=== PATIENT | male | born 1950 | race Caucasian/White ===

== ENCOUNTER 2021-05-28 08:05 | Day surgery (SDC) | payer MEDICARE, SELFPAY ==
[2021-05-23 14:00] VITALS: BMI 36.8
--- NOTE | 2021-05-26 14:27 | P.CONAN_ITS ---
Documented by User: Cathryn Lomas NP 05/26/21 14:27 HPI - Anesthesia Eval Consult details Narrative: 70yo M for Colonoscopy Eliquis for afib [facility] Past Medical History Medical History Atrial fibrillation Diabetes Elevated cholesterol HTN (hypertension) Surgical History Surgical History H/O colonoscopy Social History Social History Patient Tobacco Use Status: Former Tobacco user Quit Date: 2013 Tobacco use type: Cigarette Advance Directives: No Advance Directives Information Provided: Yes Advance Directives on File: No Meds Allergies Allergy/AdvReac Type Severity Reaction Status Date / Time No Known Allergies Allergy Verified 05/28/21 08:15 [No Known Allergies*] Home Medications Medication Instructions Recorded Confirmed Last Taken Type apixaban 5 mg tablet (Eliquis) 1 tab PO BID 05/23/21 05/23/21 Unknown History atorvastatin 40 mg tablet 1 tab PO DAILY 05/23/21 05/23/21 Unknown History lisinopril 20 mg tablet 1 tab PO DAILY 05/23/21 05/23/21 Unknown History metformin 500 mg tablet 2 tab PO BID 05/23/21 05/23/21 Unknown History metoprolol tartrate 100 mg tablet 1 tab PO DAILY 05/23/21 05/28/21 05/28/21 06:45 History Exam Exam Date and Time: May 26, 2021 142 Height,Weight and Vital Signs: Height 5 ft 7 in Weight 106.594 kg Assessment and Plan Assessment Anesthesia Assessment: Chart Reviewed Documented by User: José Antonio Roberson MD 05/28/21 14:44 HPI - Anesthesia Eval Consult details Narrative: 70yo M for Colonoscopy Eliquis for afib, held 4 days ago for procedure , 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 [facility] Past Medical History Medical History Atrial fibrillation Diabetes Elevated cholesterol HTN (hypertension) Family History Family history of problems with anesthesia: No Surgical History Surgical History H/O colonoscopy History of Problems with Anesthesia: No Social History Social History Patient Tobacco Use Status: Former Tobacco user Quit Date: 2013 Tobacco use type: Cigarette Advance Directives: No Advance Directives Information Provided: Yes Advance Directives on File: No Meds Allergies Allergy/AdvReac Type Severity Reaction Status Date / Time No Known Allergies Allergy Verified 05/28/21 08:15 [No Known Allergies*] Home Medications Medication Instructions Recorded Confirmed Last Taken Type apixaban 5 mg tablet (Eliquis) 1 tab PO BID 05/23/21 05/23/21 Unknown History atorvastatin 40 mg tablet 1 tab PO DAILY 05/23/21 05/23/21 Unknown History lisinopril 20 mg tablet 1 tab PO DAILY 05/23/21 05/23/21 Unknown History metformin 500 mg tablet 2 tab PO BID 05/23/21 05/23/21 Unknown History metoprolol tartrate 100 mg tablet 1 tab PO DAILY 05/23/21 05/28/21 05/28/21 06:45 History Exam Airway Mallampati Class: IV TM Dist: >3cm Neck ROM: Full Partial: Upper and Lower Loose/Missing/Broken Teeth: Yes Heart: irregular Lungs: bl breath sounds Assessment and Plan Assessment Anesthesia Assessment: Anesthesia Plan Discussed Final Anesthetic Review Family History of Problems with Anesthesia: No History of Problems with Anesthesia: No NPO: Yes ASA Class: III Final Preanesthetic Review: Meds/Allgs Chart Reviewed, Consent Obtained/Reviewed and Anes Risks/Benef Reviewed Patient Risk: High Procedure Risk: Intermediate Anesthetic Plan Anesthetic Plan: MAC: Disposition: Standard PACU
[2021-05-28 08:50] VITALS: BP 172/89; PULSE 75; RESP 18; TEMP 35.6; O2SAT 98
[2021-05-28 08:50] LABS: Glucose, Whole Blood 125 mg/dL (60-115)
[2021-05-28] MEDS: Lactated Ringers 1,000 ML 100 ML IVCONT (08:55)
--- NOTE | 2021-05-28 10:25 | PM.OP ---
Brief Operative Note Date of Service: 05/28/21 Pre-op diagnosis: Screening Post-op diagnosis: other (Diverticulosis) Procedure: Colonoscopy to the cecum Surgeon: Cody Perez Anesthesia: MAC Was an Machine Package Sealer used for this Procedure?: No Estimated blood loss (mL): 0 Pathology: none sent Condition: stable Disposition: PACU
[2021-05-28 10:41] VITALS: BP 129/85; PULSE 83; RESP 20; TEMP 35.9; O2SAT 97
[2021-05-28 10:56] VITALS: BP 149/98; PULSE 71; RESP 16; TEMP 36.4; O2SAT 96
--- NOTE | 2021-05-28 11:01 | OP_ITS ---
SURGEON: Cody Perez MD INDICATIONS: The patient presents for evaluation of personal history of tubular adenoma of the colon, family history of colon cancer, and colorectal cancer screening. Full consent was obtained from him for this, including risks of bleeding and perforation. PREOPERATIVE DIAGNOSIS: POSTOPERATIVE DIAGNOSIS: PROCEDURE PERFORMED: Colonoscopy to the cecum. ESTIMATED BLOOD LOSS: COMPLICATIONS: ANESTHESIA: Monitored anesthesia care. ASSISTANTS: SPECIMENS: PREOPERATIVE DIAGNOSES: Colorectal cancer screening, family history colon cancer, personal history of tubular adenoma of the colon. POSTOPERATIVE DIAGNOSES: Colorectal cancer screening, family history colon cancer, personal history of tubular adenoma of the colon, diverticulosis and internal hemorrhoids. DESCRIPTION OF PROCEDURE: The patient was placed in the left lateral decubitus position. The digital rectal exam revealed no abnormalities. The Olympus video pediatric colonoscope was entered into the rectum and advanced easily to the cecum. Once in the cecum I did identify normal-appearing cecal pouch with appendiceal orifice and a normal-appearing ileocecal valve. There was transillumination of light deep in the right lower quadrant. The entire cecum appeared normal. The scope was then slowly withdrawn assessing all mucosal surfaces carefully. Preparation was excellent. I did not visualize any sign of polyps, colitis, or angiodysplasia. There was scattered diverticula in the ascending colon, there was a moderate amount of diverticulosis in the descending and sigmoid colon. In the rectum, scope was retroflexed visualizing internal hemorrhoids, but no other pathology. The rectal mucosa appeared normal. The scope was straightened and withdrawn from the patient. He tolerated the procedure well and was returned to the recovery area in stable condition. IMPRESSION: 1. Diverticulosis. 2. Internal hemorrhoids. PLAN: I would recommend a repeat colonoscopy in 5 years for further screening given his previous history of tubular adenomas and family history of colon cancer. He was advised to resume his Eliquis today. He will otherwise see me on a p.r.n. basis. MD KUSUM Negron/TIMOTHY / [id number]
== END 2021-05-28 11:40 | disposition home or self-care (01) ==
PROVIDERS: PCP General Practice; Visit Provider Internal Medicine
PROC: 0DJD8ZZ Inspection of Lower Intestinal Tract, Via Natural or Artificial Opening Endoscopic (ICD-10-PCS; CPT 45378; principal; 2021-05-28 09:30)
DX: Z12.11 Encounter for screening for malignant neoplasm of colon (principal); Z86.010 Personal history of colon polyps; Z80.0 Family history of malignant neoplasm of digestive organs; K57.30 Diverticulosis of large intestine without perforation or abscess without bleeding; K64.8 Other hemorrhoids; E78.5 Hyperlipidemia, unspecified; I48.91 Unspecified atrial fibrillation; Z79.01 Long term (current) use of anticoagulants; I10 Essential (primary) hypertension; E11.9 Type 2 diabetes mellitus without complications; Z79.84 Long term (current) use of oral hypoglycemic drugs; Z79.899 Other long term (current) drug therapy; Z87.891 Personal history of nicotine dependence
CPT/HCPCS: G0105; 82947

== ENCOUNTER 2021-07-24 09:32 | Outpatient (REF) | payer MEDICARE, SELFPAY ==
--- NOTE | ~2021-07-24 | US_ITS ---
EXAMINATION: US RETROPERITONEAL LIMITED (AORTA) CLINICAL INFORMATION: History of smoking. Abdominal aortic screening. COMPARISON: None TECHNIQUE: Azar-scale, color Doppler and spectral Doppler evaluation of the abdominal aorta. Technically difficult study secondary to bowel gas and body habitus. FINDINGS: Study is somewhat limited due to large body habitus and bowel gas. The measurements of the aorta in maximum AP and transverse dimensions respectively are as follows: Proximal: 2.8 x 3.0 cm. Mid: 1.7 x 1.7 cm. Distal: 1.6 x 1.9 cm. PSV: 85 cm/s. There is calcified and noncalcified mild aortoiliac plaque present. The measurements of the common iliac arteries in maximum AP and TRV dimensions are as follows: Right: AP: 1.1 cm. TRV: 1.2 cm. Left: AP: 1.1 cm. TRV: 1.1 cm. US/US aorta IMPRESSION: No abdominal aortic aneurysm.
== END 2021-07-24 09:33 | disposition home or self-care (01) ==
LOC: HO.US 09:32
PROVIDERS: Visit Provider General Practice
DX: Z87.891 Personal history of nicotine dependence (principal)
CPT/HCPCS: 76775

== ENCOUNTER 2024-08-29 10:01 | Outpatient (AMB) | payer OTHER, SELFPAY ==
--- NOTE | 2024-08-29 10:12 | MHC.PC.OV ---
Vital Signs 08/29/24 10:13 Height 5 ft 7 in Weight 225 lb 12.8 oz BMI 35.4 BP 160/94 H Blood Pressure Location Rt brachial Position Sitting Respiration 16 Pulse 84 Pulse Source Pulse Oximeter Temp 97.6 F Temp Source Oral Pulse Oximetry (%) 96 Oxygen Delivery Method Room Air Intake Visit Reasons: establish care Intake Note: Patient is a new patient here to establish care. Transferring care from [facility] in [place], [place]. Medical records have not been requested and have not been received. 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 Required: No Accompanied by: Self / Same As Patient Allergies No Known Allergies [No Known Allergies*] Allergy (Verified 08/29/24 10:37) Medication List - Last Reconciled 08/29/24 by FRANNY Bates apixaban (Eliquis) 1 tab PO BID atorvastatin 40 mg PO DAILY lisinopril 30 mg PO DAILY metformin 2 tabs PO BID metoprolol tartrate 50 mg PO BID Tobacco use date assessed: 08/29/24 Fall risk assessment: No Falls in past year Last assessed Fall Risk: 08/29/24 Dental Screening Dental Screen Date: 08/29/24 Did you have a dental visit in the last 12 months?: Yes Did you have a dental problem in the last 6 months where you did not have access to dental care?: No Was dental information given to patient?: Patient has dentist HPI establish care HPI Details Previous PCP:[facility] in [place], [place] Last visit: February,march,, his doctor retired Last PE: August or September, Specialist: Needs EKG, 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 Rico GUTHRIEN:n/a Past medical history: DM, HLD, AFIB, macular degeneration (recurrent eye injections) Medications: Family HX: Problem: Blood pressure elevated in office at 160/94 reports home blood pressure of 130/80s reports having coffee before appointment recheck bp 160/98-reports that he recently had coffee and he does not usually drinks coffee prior to his doctors appointments, but he forgot and had coffee this morning reports doing the treadmill at the gym 3 times a weeks he denies any pain ON exam: bilateral ear impaction, recommended debrox ear drops will evaluate upon return [facility] Medical History (Updated 08/29/24 @ 11:20 by FRANNY Bates) Diabetes Elevated cholesterol Atrial fibrillation HTN (hypertension) Surgical History H/O colonoscopy Family History Father Heart disease Mother Colon cancer Social History Household Members: None Housing: Condominium Alcohol intake: current Alcohol intake frequency: 0-2 drinks per day Patient Tobacco Use Status: Former Tobacco user Tobacco use type: Cigarette e-Cigarette/Vaping Use: Never Used service: No Current occupational status: retired Cognitive needs: No Hearing needs: No Vision needs: Yes (Glasses) Questionnaire PHQ-9 Over the last 2 weeks, how often have you been bothered by any of the following problems? 1. Little interest or pleasure in doing things: not at all 2. Feeling down, depressed, or hopeless: not at all 3. Trouble falling or staying asleep, or sleeping too much: not at all 4. Feeling tired or having little energy: not at all 5. Poor appetite or overeating: not at all 6. Feeling bad about yourself - or that you are a failure or have let yourself or your family down: not at all 7. Trouble concentrating on things, such as reading the newspaper or watching television: not at all 8. Moving or speaking so slowly that other people could have noticed. Or the opposite - being so fidgety or restless that you have been moving around a lot more than usual: not at all 9. Thoughts that you would be better off or of hurting yourself in some way: not at all Total score: 0 Depression Screening Interpretation: Negative Depression Screening Done: Yes 67917 - PHQ-9 Billing: Yes Source: Developed by Drs. Cody Comer, Tram Starr, Keyon Angeles and colleagues, with an educational zafar from [employer]. Thrive Questionnaire Date Thrive assessed: 08/29/24 I am a: Patient What is your living situation today?: I have a steady place to live Within the past 12 months, did the food you bought not last and you didn't have the money to get more?: Never true Within the past 12 months, did you worry whether your food would run out before you got money to buy more?: Never true Do you have trouble paying for medicines?: No Do you have trouble getting transportation to medical appointments?: No Do you have trouble paying your heating and electricity bill?: No Do you have trouble taking care of your child, family member or friend?: No Do you have trouble with day-to-day activities such as bathing, preparing meals, shopping, managing finances, etc.?: No Are you currently unemployed and looking for a job?: No Are you interested in more education?: No Please select the resources that you would like help with: None Currently or been in a relationship where the following occur: No concerns reported THRIVE Score: 0 AUDIT C Alcohol Use Questionnaire (AUDIT-C) 1. How often do you have a drink containing alcohol?: Never 3. How often do you have six or more drinks on one occasion?: Never Total Score: 0 Score Reviewed/Action Taken: No NALLELY-7 AMB Questionnaire NALLELY-7 Date NALLELY - 7 assessed: 08/29/24 Feeling nervous, anxious, or on edge: 0 = Not at all Not being able to stop or control worryin = Not at all Worrying too much about different things: 0 = Not at all Trouble relaxin = Not at all Being so restless that it is hard to sit still: 0 = Not at all Becoming easily annoyed or irritable: 0 = Not at all Feeling afraid as if something awful might happen: 0 = Not at all Total NALLELY-7 score (0-4 normal; 5-9 mild; 10-14 moderate; 15-21 severe): 0 Source: Developed by Drs. Cody Comer, Tram Starr, Keyon Angeles and colleagues, with an educational zafar from [employer]. NALLELY-7 Assessment Billing NALLELY-7 Assessment Tool: NALLELY-7 Assessment 94951 Review of Systems Const Denies headache(s) Eyes Denies loss of vision ENT Denies vertigo, Denies dizziness, Denies headache(s) and Denies sore throat Card Denies chest pain, Denies leg edema and Denies lightheadedness Resp Denies cough, Denies hemoptysis and Denies wheezing GI Denies abdominal pain, Denies melena, Denies constipation, Denies diarrhea and Denies vomiting Denies dysuria, Denies urinary frequency and Denies urinary urgency Musc Denies arthralgias, Denies joint swelling, Denies numbness and Denies tingling Neuro Denies Abnormal speech present, Denies behavioral changes, Denies vertigo, Denies dizziness, Denies headache(s), Denies loss of vision, Denies memory loss, Denies numbness and Denies tingling Psych Denies anxiety, Denies behavioral changes, Denies depression, Denies memory loss and Denies panic attacks Fortino/Lymph Denies easy bleeding and Denies easy bruising Aller/Immun Denies wheezing Physical exam (Primary Care) Vital Signs: Last Vital Signs Temp 97.6 F 08/29/24 10:13 Pulse 84 08/29/24 10:13 Resp 16 08/29/24 10:13 BP 160/94 H 08/29/24 10:13 Pulse Ox 96 08/29/24 10:13 Oxygen Delivery Method Room Air 08/29/24 10:13 BMI result Body Mass Index 35.4 Tobacco/Smoking Status: Tobacco use Status Tobacco use date assessed 08/29/24 08/29/24 10:30 Patient Tobacco Use Status Former Tobacco user 08/29/24 10:28 Tobacco use type Cigarette 08/29/24 10:28 e-Cigarette/Vaping Use Never Used 08/29/24 10:30 PHQ-9: PHQ-9 Score PHQ-9: Total score 0 08/29/24 10:30 Depression Screening Interpretation: Negative Thrive Assessment: Date of Thrive Assessment Date Thrive assessed 08/29/24 08/29/24 10:30 Currently or been in a relationship where the following occur: No concerns reported Const General: healthy appearing, no acute distress, alert and awake Nutritional Appearance: well nourished Orientation/consciousness: oriented to person, oriented to place and oriented to time HENMT Ears: Abnormal EAC present cerumen impaction bilateral General nose exam: Normal nasal mucous membranes and turbinates present Eyes Conjunctivae: conjunctivae normal Sclerae: sclerae normal Pupils: Equal, round and reactive pupils present Neck Neck: Yes no lymphadenopathy and Yes no JVD Thyroid: Thyroid normal Carotids: no bruits Resp Effort & Inspection: normal respiratory effort and not tachypneic Auscultation: no crackles, no rales, no rhonchi and no wheezes Cardio Rate: regular rate Rhythm: abnormal rhythm irregularly irregular Heart sounds: no murmurs and normal S1 and S2 GI Palpation (GI): Soft to palpation, nontender, no hepatomegaly and no splenomegaly Auscultation: normal bowel sounds Skin General skin exam: no rashes or lesions noted and dry skin Neuro General: oriented to person, oriented to place and oriented to time Cranial nerves: Yes Equal, round and reactive pupils present Speech: No Abnormal speech present Gait exam (Neuro): Normal gait present Motor exam (neuro): no tremor noted Extrem Right upper extremity: full ROM Left upper extremity: full ROM Right lower extremity: full ROM; no edema Left lower extremity: full ROM; no edema Psych Mental Status: mental status grossly normal Speech and movement: Normal speech and movement present Affect: normal affect Attitude: cooperative Thought process: Normal thought process present Coding Level of Care Code New Pt Level 4 (63832) Diagnoses Longstanding persistent atrial fibrillation I48.11 Atrial fibrillation type: longstanding persistent Hyperlipidemia, unspecified hyperlipidemia type E78.5 Hyperlipidemia type: unspecified Hypertension, unspecified type I10 Hypertension type: unspecified Bilateral impacted cerumen H61.23 Laterality: bilateral Additional Codes NALLELY-7 Assessment Billing - NALLELY-7 Assessment Tool: NALLELY-7 Assessment 67840 ([id number]) PHQ-9 - 47644 - PHQ-9 Billing: Yes ([id number]) Time Spent (min) 37 Assessment & Plan Assessment & Plan (1) Atrial fibrillation: Code(s): I48.91 - Unspecified atrial fibrillation Category: Medical Qualifiers: Atrial fibrillation type: longstanding persistent Qualified Code(s): I48.11 - Longstanding persistent atrial fibrillation Plan: Longstanding AFib, reports being shocked years ago and converted for a short period, then went back into AFib shortly after Will order ekg to further evaluate He is currently on apixaban 5 mg b.i.d. and metoprolol tartrate 50 mg b.i.d. Continue atorvastatin 40 mg daily We will referral the patient to Cardiology. 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 Reports that this is due to coffee intake prior to visit and that his blood pressure usually runs in the 130s/80s Reinforced low-salt diet Continue lisinopril 30 mg daily, metoprolol tartrate 50 mg bid (4) Impacted ear wax: Code(s): H61.20 - Impacted cerumen, unspecified ear Category: Medical Qualifiers: Laterality: bilateral Qualified Code(s): H61.23 - Impacted cerumen, bilateral Plan: Bilateral ear impaction on exam encouraged using debrox ear drops to soften the cerumen will reevaluate on his next visit Orders: Orders Comprehensive Friant. Panel Fast Today E78.5 - Hyperlipidemia, unspecified, Z00.00 - Encounter for general adult medical examination without abnormal findings Lipid Panel Today E78.5 - Hyperlipidemia, unspecified, Z00.00 - Encounter for general adult medical examination without abnormal findings PSA,Total (Free>4and<10) Today E78.5 - Hyperlipidemia, unspecified, Z00.00 - Encounter for general adult medical examination without abnormal findings UA CC w/rflx Micro + Cult Today E78.5 - Hyperlipidemia, unspecified, Z00.00 - Encounter for general adult medical examination without abnormal findings TSH reflex Free T4 Today E78.5 - Hyperlipidemia, unspecified, Z00.00 - Encounter for general adult medical examination without abnormal findings Complete Blood Count Auto Diff Today E78.5 - Hyperlipidemia, unspecified, Z00.00 - Encounter for general adult medical examination without abnormal findings Vitamin D 25-OH Total Today E78.5 - Hyperlipidemia, unspecified, Z00.00 - Encounter for general adult medical examination without abnormal findings Hemoglobin A1c Today E78.5 - Hyperlipidemia, unspecified, Z00.00 - Encounter for general adult medical examination without abnormal findings ECG 12 lead EKG Today I10 - Essential (primary) hypertension, I48.91 - Unspecified atrial fibrillation Medications: New atorvastatin 40 mg PO DAILY 60 tabs 3RF Changed From apixaban (Eliquis) 1 tab PO BID To apixaban (Eliquis) 5 mg PO BID 90 days 180 tabs 3RF
[2024-08-29 10:13] VITALS: BP 160/94; PULSE 84; RESP 16; TEMP 36.4; O2SAT 96; BMI 35.4
== END 2024-08-29 11:06 | disposition home or self-care (01) ==
LOC: HO.HMCH 10:03
PROVIDERS: PCP General Practice
DX: I48.11 Longstanding persistent atrial fibrillation (principal); E78.5 Hyperlipidemia, unspecified; I10 Essential (primary) hypertension; H61.23 Impacted cerumen, bilateral

== ENCOUNTER → 2024-08-29 10:01 | Outpatient (BNVA) | payer OTHER, SELFPAY | PROVIDERS: PCP General Practice | DX: I48.11 Longstanding persistent atrial fibrillation (principal); E78.5 Hyperlipidemia, unspecified; I10 Essential (primary) hypertension; H61.23 Impacted cerumen, bilateral | CPT/HCPCS: 96127 ==

== ENCOUNTER 2024-09-05 08:15 | Outpatient (REF) | payer OTHER, SELFPAY ==
--- OUTSIDE RECORDS SUMMARY | 2024-09-05 08:22 | XMS_ITS | Patient Health Record ---
Author Organization [facility] Address [address] [place] [address] Care Team Providers Care Light Armored Vehicle Officer Name Role Phone Casey Reeves Primary Care Provider Cody Meeks Unavailable [phone] Allergies No Known Allergies Reason For Referral No Information Medications Medication SIG (Take, Route, Frequency, Duration) Notes Start Date End Date Status Lisinopril 20 MG 1 tablet Orally Once a day Active Atorvastatin Calcium 40 MG 1 tablet Oral ly Once a day Active Eliquis 5 MG 1 Orally bid Acti ve metFORMIN HCl 1000 MG 1 tablet with a me al Orally Twice a day Active Metoprolol Succinate ER 100 MG 1/2 tablet Orally twice a day Active Immunizations Vaccine Route Administration Date Status Comme nts Influenza Unknown 01/28/2021 Administered Social History Alcohol Screen Question Answer Notes Did you have a drink contain ing alcohol in the past year? Yes How often did you have a dri nk containing alcohol in the past year? 4 or more times a week (4 points) How many drinks did you have on a typical day when you were drinking in the past year? 1 or 2 drinks (0 point) How often did you have 6 or more drinks on one occasion in the past year? Never (0 point) Points 4 Interpretation Positive Section Notes: Nonsmoker since 2013; no sig alcohol Nonsmoker since 2013; no sig alcohol Problems Problem Type SNOMED Code ICD Code Onset Dates Problem Status W/U Status Risk Notes Problem 900244588 Encounter for screening for malignant neoplasm of colon (Z12.11) Active confirmed Problem 789748980 History of adenomatous polyp of colon (Z86.010) Active confirmed Problem Screening for malignant neoplasm of rectum (712189953) Encounter for screening for malignant neoplasm of rectum (Z12.12) Active confirmed Problem 07226937 Preprocedural examination (Z01.818) Active confirmed Problem History of polyp of colon (situation) (678149617) History of colon polyps (Z86.010) Active confirmed Problem Family History of Cancer of Colon (Situation) (076976597) Family history of colon cancer (Z80.0) Active confirmed Problem 398148818 Long-term (current) use of anticoagulants (Z79.01) Active confirmed Problem Diverticulosis of colon (136217857) Diverticulosis of colon (K57.30) Active confirmed Problem 282514639 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) Active confirmed Plan Of Treatment Future Test Test Name Order Date COLONOSCOPY 11/06/2015 COLONOSCOPY 04/17/2021 Insurance Providers Payer Name Payer Address Payer Phone Subscriber Number Group Number Insured Name Patient Relationship to Insured Coverage Start Date Coverage End Date [employer] PREFERRED [address] [place] [address] [phone] [id number] ARMANI GAFFNEY Self - patient is the insured Medical (General) History Medical History History ICD Code HTN Denies [place],CVA,Lung disease,renal disease Atrial fibrillation Colonoscopies in 2004(negati ve) and 05/2010--1 polyp removed in 05/2010--tubular adenoma; severe diverticulosis as described in the colonoscopy report as well Hyperlipidemia NIDDM Colonoscopy 01/2016 with small tubular a denomas removed Surgical History Surgery Date(Month/Year)
[2024-09-05 08:30] LABS: MANUAL DIFF FLAG NO
[2024-09-05 08:40] LABS: Basophils Absolute Auto 0.1 X10*3/uL (0.0-0.2); Basophils Percent Auto 0.6 % (0-2); Eosinophils Absolute Auto 0.2 X10*3/uL (0.0-0.4); Eosinophils Percent Auto 2.3 % (0-4); Hematocrit 43.6 % (42.0-52.0); Imm Gran Abs Auto 0.03 X10*3/uL (0.00-0.03); Imm Gran Pct Auto 0.3 % (0.0-0.4); Lymphocytes Absolute Auto 3.1 X10*3/uL (1.2-4.9); Lymphocytes Percent Auto 35.3 % (20-40); Mean Corpuscular HGB Conc 34.4 g/dl (31.0-36.0); Mean Corpuscular Hemoglobin 31.3 pg (27.0-33.0); Mean Platelet Volume 8.5 fL (9.4-12.4); Monocytes Absolute Auto 0.6 X10*3/uL (0.1-1.2); Monocytes Percent Auto 7.2 % (2-11); Neutrophils Absolute Auto 4.8 x10*3/uL (2.0-8.3); Neutrophils Percent Auto 54.3 % (45-73); Platelet Count 187 X10*3/uL (160-400); Red Blood Count 4.79 X10*6/uL (4.60-5.80); Red Cell Distribution Width 12.7 % (11.0-16.0); White Blood Count 8.9 X10*3/uL (4.8-10.8)
[2024-09-05 08:49] LABS: Estimated Average Glucose 146 mg/dL; Hemoglobin A1c % 6.7 % (<6.0); Total Hemoglobin (HGBA1C) 3953.5408 umol/L
[2024-09-05 09:15] LABS: Alanine Aminotransferase 22 U/L (0-40); Albumin Level 4.7 g/dL (3.5-5.0); Alkaline Phosphatase 124 U/L (39-117); Anion Gap 16 (12-20); Aspartate Amino Transferase 20 U/L (5-37); Bilirubin Total 0.9 mg/dL (0.0-1.0); Blood Urea Nitrogen 14 mg/dL (9-16); Calcium 9.5 mg/dL (8.4-10.2); Carbon Dioxide 23 mmol/L (22-29); Chloride 107 mmol/L (96-108); Cholesterol 109 mg/dL (<200); Estimated Glomerular Filt Rate > 60; Glucose Fasting 138 mg/dL (60-99); HDL Cholesterol 32 mg/dL (>40); LDL Cholesterol Calculated 53 mg/dL (<100); Potassium 4.5 mmol/L (3.3-5.1); Sodium 141 mmol/L (135-145); Total Protein 7.2 g/dL (6.5-8.0); Triglycerides 120 mg/dL (<150)
[2024-09-05 09:24] LABS: Appearance Urine Clear; Color Urine Dark Yellow; Glucose Urine UA Negative (Negative); Leukocyte Esterase Urine Negative (Negative); Nitrite Urine Negative (Negative); PH 5.5 (5.0-9.0); Specific Gravity - Urine >= 1.030 (1.005-1.025); UMIC TRIGGER UACC YES; Urine Blood Negative (Negative); Urine Ketones Trace mg/dL (Negative); Urine Protein 30 (1+) mg/dL (Neg-Trace)
[2024-09-05 09:29] LABS: Bacteria Urine None Seen (None Seen); RBC Urine 0-2 /HPF (0-2); Squamous Epithelial Cell Urine 0-2 /HPF (0-2); WBC Urine 0-5 /HPF (0-5)
[2024-09-05 09:35] LABS: TSH reflex Free T4 1.18 uIU/mL (0.32-4.0); Vitamin D 25-OH Total 17.3 ng/mL (>30)
== END 2024-09-05 08:16 | disposition home or self-care (01) ==
LOC: HO.LAB 08:15
DX: Z00.00 Encounter for general adult medical examination without abnormal findings (principal); E78.5 Hyperlipidemia, unspecified; Z12.5 Encounter for screening for malignant neoplasm of prostate; Z13.1 Encounter for screening for diabetes mellitus
CPT/HCPCS: 36415; 80053; 80061; 81001; 82306; 83036; 84153; 84443; 85025

== ENCOUNTER → 2024-09-21 08:40 | Outpatient (REF) | payer OTHER, SELFPAY ==
--- NOTE | 2024-09-21 08:44 | ECG_ITS ---
Test Reason : AFIB, UNSPECIFIED Blood Pressure : */* mmHG Vent. Rate : 57 BPM Atrial Rate : * BPM P-R Int : * ms QRS Dur : 144 ms QT Int : 446 ms P-R-T Axes : * 108 23 degrees QTcB Int : 434 ms Atrial fibrillation with slow ventricular response Right bundle branch block Abnormal ECG No previous ECGs available Referred By: Roman Paz Electronically Signed By: Camden Granados
--- OUTSIDE RECORDS SUMMARY | 2024-09-21 08:52 | XMS_ITS | Patient Health Record ---
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 Name Role Phone Casey Reeves Primary Care Provider Cody Meeks Unavailable [phone] Allergies No Known Allergies Reason For Referral [...] Problem Status W/U Status Risk Notes Problem 346865284 Encounter for screening for malignant neoplasm of colon (Z12.11) Active confirmed Problem 589366775 History of adenomatous polyp of colon (Z86.010) Active confirmed Problem Screening for malignant neoplasm of rectum (477029768) Encounter for screening for malignant neoplasm of rectum (Z12.12) Active confirmed Problem 89064387 Preprocedural examination (Z01.818) Active confirmed Problem History of polyp of colon (situation) (950015173) History of colon polyps (Z86.010) Active confirmed Problem Family History of Cancer of Colon (Situation) (028454290) Family history of colon cancer (Z80.0) Active confirmed Problem 139462962 Long-term (current) use of anticoagulants (Z79.01) Active confirmed Problem Diverticulosis of colon (951361685) Diverticulosis of colon (K57.30) Active confirmed Problem 435910259 emt intermediate curren t use of anticoagulant (Z79.01) Active confirmed Plan Of Treatment Future Test Test Name Order Date COLONOSCOPY 11/06/2015 COLONOSCOPY 04/17/2021 Insurance Providers Payer Name Payer Address Payer Phone Subscriber Number Group Number Insured Name Patient Relationship to Insured Coverage Start Date Coverage End Date [employer] [address] [place] [phone] [id number] ARMANI GAFFNEY Self - patient is the insured Medical (General) History Medical History History ICD Code HTN Denies [place],CVA,Lung disease,renal disease Atrial fibrillation Colonoscopies in 2004(negati ve) and 05/2010--1 polyp removed in 05/2010--tubular adenoma; severe diverticulosis as described in the colonoscopy report as well Hyperlipidemia NIDDM Colonoscopy 01/2016 with small tubular a denomas removed Surgical History Surgery Date(Month/Year)
== END ==
LOC: HO.CARD 08:40
DX: I10 Essential (primary) hypertension (principal); I48.91 Unspecified atrial fibrillation
CPT/HCPCS: 93005

== ENCOUNTER → 2024-09-21 08:44 | Outpatient (BNV) | payer OTHER, SELFPAY | PROVIDERS: Visit Provider Internal Medicine Cardiovascular Disease | DX: I48.91 Unspecified atrial fibrillation (principal); I45.10 Unspecified right bundle-branch block | CPT/HCPCS: 93010 ==

== ENCOUNTER 2024-10-26 08:06 | Outpatient (AMB) | payer OTHER, SELFPAY ==
--- NOTE | 2024-10-26 08:12 | A.OFFPC_ITS ---
Vital Signs 10/26/24 08:13 Height 5 ft 7 in Weight 228 lb BMI 35.7 BP 130/72 Blood Pressure Location Lt brachial Position Sitting Pulse 61 Pulse Source Pulse Oximeter Temp 97.3 F Temp Source Temporal Artery Scan Pulse Oximetry (%) 98 Oxygen Delivery Method Room Air Intake Visit Reasons: PE Intake Note: Patient is here today for a physical. 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: No Hospice Clinical Supervisor: Not Required per policy Accompanied by: Self / Same As Patient Allergies No Known Allergies (No Known Allergies*) Allergy (Verified 10/26/24 08:26) Medication List - Last Reconciled 10/26/24 by FRANNY Bates apixaban (Eliquis) 5 mg PO BID 90 days atorvastatin 40 mg PO DAILY lisinopril 30 mg PO DAILY metformin 2 tabs PO BID metoprolol tartrate 50 mg PO BID Tobacco use date assessed: 10/26/24 Fall risk assessment: No Falls in past year Last assessed Fall Risk: 10/26/24 Dental Screening Dental Screen Date: 08/29/24 HPI PE HPI Details Dentist: The patient has dentures Eye: reports that he has to make an appt Snellen: Right: Left: Corrected vision:yes, glasses STI screening: Colonoscopy: 2021 and was diagnosed with diverticulosis-pending to repeat in couple of years per patient. Pap Smer: n/a PHQ-9: Flu: up to date COVID: x3 Tdap: 2022 Diet:regular with close attention to sugar and carbohydrates Exercise:The patient is very active and exercises regular [facility] Medical History (Updated 10/26/24 @ 10:00 by FRANNY Bates) Diabetes Elevated cholesterol Atrial fibrillation HTN (hypertension) Surgical History H/O colonoscopy Family History Father Heart disease Mother Colon cancer Social History Household Members: None Housing: Condominium Alcohol intake: current Alcohol intake frequency: 0-2 drinks per day Patient Tobacco Use Status: Former Tobacco user Tobacco use type: Cigarette e-Cigarette/Vaping Use: Never Used Second Hand Smoke Exposure: Yes service: No Current occupational status: retired Cognitive needs: No Hearing needs: No Vision needs: Yes (Glasses) Questionnaire Thrive Questionnaire Date Thrive assessed: 08/22/24 I am a: Patient What is your living situation today?: I have a steady place to live Within the past 12 months, did the food you bought not last and you didn't have the money to get more?: Never true Within the past 12 months, did you worry whether your food would run out before you got money to buy more?: Never true Do you have trouble paying for medicines?: No Do you have trouble getting transportation to medical appointments?: No Do you have trouble paying your heating and electricity bill?: No Do you have trouble taking care of your child, family member or friend?: No Do you have trouble with day-to-day activities such as bathing, preparing meals, shopping, managing finances, etc.?: No Are you currently unemployed and looking for a job?: No Are you interested in more education?: No Please select the resources that you would like help with: None Currently or been in a relationship where the following occur: No concerns reported THRIVE Score: 0 NALLELY-7 AMB Questionnaire NALLELY-7 Date NALLELY - 7 assessed: 08/29/24 Source: Developed by Drs. Cody Comer, Tram Starr, Keyon Angeles and colleagues, with an educational zafar from [employer]. Review of Systems Const Denies headache(s) Eyes Denies loss of vision ENT Denies vertigo, Denies dizziness, Denies headache(s) and Denies sore throat Card Denies chest pain, Denies leg edema and Denies lightheadedness Resp Denies cough, Denies hemoptysis and Denies wheezing GI Denies abdominal pain, Denies melena, Denies constipation, Denies diarrhea and Denies vomiting Denies dysuria, Denies urinary frequency and Denies urinary urgency Musc Denies arthralgias, Denies joint swelling, Denies numbness and Denies tingling Neuro Denies Abnormal speech present, Denies behavioral changes, Denies vertigo, Denies dizziness, Denies headache(s), Denies loss of vision, Denies memory loss, Denies numbness and Denies tingling Psych Denies anxiety, Denies behavioral changes, Denies depression, Denies memory loss and Denies panic attacks [place]/Lymph Denies easy bleeding and Denies easy bruising Aller/Immun Denies wheezing Physical exam (Primary Care) Vital Signs: Last Vital Signs Temp 97.3 F 10/26/24 08:13 Pulse 61 10/26/24 08:13 BP 130/72 10/26/24 08:13 Pulse Ox 98 10/26/24 08:13 Oxygen Delivery Method Room Air 10/26/24 08:13 BMI result Body Mass Index 35.7 Tobacco/Smoking Status: Tobacco use Status Tobacco use date assessed 10/26/24 10/26/24 08:16 Patient Tobacco Use Status Former Tobacco user 10/26/24 08:16 Tobacco use type Cigarette 10/26/24 08:16 e-Cigarette/Vaping Use Never Used 10/26/24 08:16 Thrive Assessment: Date of Thrive Assessment Date Thrive assessed 08/22/24 10/26/24 08:16 Currently or been in a relationship where the following occur: No concerns reported Const General: healthy appearing, no acute distress, alert and awake Nutritional Appearance: well nourished Orientation/consciousness: oriented to person, oriented to place and oriented to time HENMT Ears: Abnormal EAC present cerumen impaction bilateral General nose exam: Normal nasal mucous membranes and turbinates present Teeth and gingiva: dentures Eyes Conjunctivae: conjunctivae normal Sclerae: sclerae normal Pupils: Equal, round and reactive pupils present Neck Neck: Yes no lymphadenopathy and Yes no JVD Thyroid: Thyroid normal Carotids: no bruits Resp Effort & Inspection: normal respiratory effort and not tachypneic Auscultation: no crackles, no rales, no rhonchi and no wheezes Cardio Rate: regular rate Rhythm: abnormal rhythm irregularly irregular Heart sounds: no murmurs and normal S1 and S2 GI Palpation (GI): Soft to palpation, nontender, no hepatomegaly and no splenomegaly Auscultation: normal bowel sounds General: Yes no CVA tenderness Back/Spine/Pelvis Back: no CVA tenderness Skin General skin exam: no rashes or lesions noted and dry skin Neuro General: oriented to person, oriented to place and oriented to time Cranial nerves: Yes Equal, round and reactive pupils present Speech: No Abnormal speech present Gait exam (Neuro): Normal gait present Motor exam (neuro): no tremor noted Deep tendon reflexes (DTR's): Right triceps reflex intensity grade: 2+, Left triceps reflex intensity grade: 2+, Rt Biceps (C5, C6): 2+, Left biceps reflex intensity grade: 2+, Right brachioradialis reflex intensity grade: 2+, Left brachioradialis reflex intensity grade: 2+, Right patellar reflex intensity grade: 2+ and Left patellar reflex intensity grade: 2+ Extrem Right upper extremity: full ROM Left upper extremity: full ROM Right lower extremity: full ROM; no edema Left lower extremity: full ROM; no edema Psych Mental Status: mental status grossly normal Speech and movement: Normal speech and movement present Affect: normal affect Attitude: cooperative Thought process: Normal thought process present Results Reviewed Results Reviewed: Laboratory Tests 09/05/24 09/05/24 08:22 08:29 WBC 8.9 RBC 4.79 Hgb 15.0 Hct 43.6 MCV 91.0 MCH 31.3 MCHC 34.4 RDW 12.7 Plt Count 187 Sodium 141 Potassium 4.5 Chloride 107 Carbon Dioxide 23 Anion Gap 16 BUN 14 Creatinine 0.81 Estimated GFR > 60 Fasting Glucose 138 H Hemoglobin A1c % 6.7 H Calcium 9.5 Total Bilirubin 0.9 AST 20 ALT 22 Alkaline Phosphatase 124 H Total Protein 7.2 Albumin 4.7 Triglycerides 120 Cholesterol 109 LDL Cholesterol, Calc 53 HDL Cholesterol 32 L Total PSA 0.90 25-OH Vitamin D Total 17.3 L TSH 1.18 Urine Color Dark Yellow Urine Appearance Clear Urine pH 5.5 Ur Specific [place] >= 1.030 H Urine Protein 30 (1+) H Urine Glucose (UA) Negative Urine Ketones Trace Urine Blood Negative Urine Nitrite Negative Ur Leukocyte Esterase Negative Urine RBC 0-2 Urine WBC 0-5 Ur Squamous Epith Cells 0-2 Urine Bacteria None Seen Hyaline Casts 3-5 Coding Level of Care Code Est Pt Prev Care >65y(99433) Diagnoses Annual physical exam Z00.00 Longstanding persistent atrial fibrillation I48.11 Atrial fibrillation type: longstanding persistent Hyperlipidemia, unspecified hyperlipidemia type E78.5 Hyperlipidemia type: unspecified Hypertension, unspecified type I10 Hypertension type: unspecified Bilateral impacted cerumen H61.23 Laterality: bilateral Vitamin D deficiency E55.9 Diverticulosis K57.90 Time Spent (min) 39 Assessment & Plan Assessment & Plan (1) Annual physical exam: Code(s): Z00.00 - Encounter for general adult medical examination without abnormal findings Category: Medical Plan: The patient is 74 year old male representing for annual physical. He is updated on vaccinations. Colonoscopy in 2021 with diagnosis of diverticulosis, and plans to repeat in few years. He wears dentures, and has not gotten his eyes checked in a while and will make an appointment. (2) Atrial fibrillation: Code(s): I48.91 - Unspecified atrial fibrillation Category: Medical Qualifiers: Atrial fibrillation type: longstanding persistent Qualified Code(s): I48.11 - Longstanding persistent atrial fibrillation Plan: Longstanding AFib, reports being shocked years ago and converted for a short period, then went back into AFib shortly after Ekg shows afib with RBBB He is currently on apixaban 5 mg b.i.d. and metoprolol tartrate 50 mg b.i.d. Continue atorvastatin 40 mg daily Patient was referred to [facility] cardiology (3) HLD (hyperlipidemia): Code(s): E78.5 - Hyperlipidemia, unspecified Category: Medical Qualifiers: Hyperlipidemia type: unspecified Qualified Code(s): E78.5 - Hyperlipidemia, unspecified Plan: Triglycerides 120, total cholesterol 109, LDL 53, HDL 32 Encouraged fish oil supplements Discussed lifestyle modifications including dietary changes and physical activity Continue atorvastatin 40 mg daily We will repeat lipid panel in 3 months (4) HTN (hypertension): Code(s): I10 - Essential (primary) hypertension Category: Medical Qualifiers: Hypertension type: unspecified Qualified Code(s): I10 - Essential (primary) hypertension Plan: Blood pressure is within normal goal in office today Reinforced low-salt diet Continue lisinopril 30 mg daily, metoprolol tartrate 50 mg bid (5) Impacted ear wax: Code(s): H61.20 - Impacted cerumen, unspecified ear Category: Medical Qualifiers: Laterality: bilateral Qualified Code(s): H61.23 - Impacted cerumen, bilateral Plan: Bilateral ear impaction on exam encouraged using debrox ear drops to soften the cerumen Scheduled ear flush appointment after using Debrox for at least 4 days consecutively (6) Vitamin D deficiency: Code(s): E55.9 - Vitamin D deficiency, unspecified Category: Medical Plan: Vitamin-D 17.3 Recommended starting vitamin D3 OTC daily (7) Diverticulosis: Code(s): K57.90 - Diverticulosis of intestine, part unspecified, without perforation or abscess without bleeding Category: Medical Plan: Diverticulosis seen on colonoscopy in 2021 no active inflammation or infection Orders: Orders Vitamin D 25-OH Total 3 Months E78.5 - Hyperlipidemia, unspecified, I10 - Essential (primary) hypertension, I48.11 - Longstanding persistent atrial fibrillation Comprehensive [place]. Panel Fast 3 Months E78.5 - Hyperlipidemia, unspecified, I10 - Essential (primary) hypertension, I48.11 - Longstanding persistent atrial fibrillation Lipid Panel 3 Months E78.5 - Hyperlipidemia, unspecified, I10 - Essential (primary) hypertension, I48.11 - Longstanding persistent atrial fibrillation UA CC w/rflx Micro + Cult 3 Months E78.5 - Hyperlipidemia, unspecified, I10 - Essential (primary) hypertension, I48.11 - Longstanding persistent atrial fibrillation TSH reflex Free T4 3 Months E78.5 - Hyperlipidemia, unspecified, I10 - Essential (primary) hypertension, I48.11 - Longstanding persistent atrial fibrillation
--- OUTSIDE RECORDS SUMMARY | 2024-10-26 08:12 | XMS_ITS | Patient Health Record ---
Author Organization [facility] Address [address] [place] [address] Care Team Providers Care Financial Retirement Plan Specialist Name Role Phone Casey Reeves Primary Care Provider Cody Meeks Unavailable [phone] Allergies No Known Allergies Reason For Referral [...] Problem Status W/U Status Risk Notes Problem 725287504 Encounter for screening for malignant neoplasm of colon (Z12.11) Active confirmed Problem 856785347 History of adenomatous polyp of colon (Z86.010) Active confirmed Problem Screening for malignant neoplasm of rectum (491473119) Encounter for screening for malignant neoplasm of rectum (Z12.12) Active confirmed Problem 40626131 Preprocedural examination (Z01.818) Active confirmed Problem History of colon polyps (Z86.010) Active confirmed Problem Family History of Cancer of Colon (Situation) (624019332) Family history of colon cancer (Z80.0) Active confirmed Problem 616560093 Long-term (current) use of anticoagulants (Z79.01) Active confirmed Problem Diverticulosis of colon (916295053) Diverticulosis of colon (K57.30) Active confirmed Problem 974214912 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 [phone] [id number] GULSHAN ARMANI Self - patient is the insured Medical (General) History Medical History History ICD Code HTN Denies [place],CVA,Lung disease,renal disease Atrial fibrillation Colonoscopies in 2004(negati ve) and 05/2010--1 polyp removed in 05/2010--tubular adenoma; severe diverticulosis as described in the colonoscopy report as well Hyperlipidemia NIDDM Colonoscopy 01/2016 with small tubular a denomas removed Surgical History Surgery Date(Month/Year)
[2024-10-26 08:13] VITALS: BP 130/72; PULSE 61; TEMP 36.3; O2SAT 98; BMI 35.7
== END 2024-10-26 08:57 | disposition home or self-care (01) ==
LOC: HO.HMCH 08:09
PROVIDERS: PCP General Practice
DX: Z00.00 Encounter for general adult medical examination without abnormal findings (principal); I48.11 Longstanding persistent atrial fibrillation; E78.5 Hyperlipidemia, unspecified; I10 Essential (primary) hypertension; H61.23 Impacted cerumen, bilateral; E55.9 Vitamin D deficiency, unspecified; K57.90 Diverticulosis of intestine, part unspecified, without perforation or abscess without bleeding

== ENCOUNTER 2025-01-08 08:35 | Outpatient (AMB) | payer OTHER, SELFPAY ==
[2025-01-08 08:54] VITALS: BP 132/78; PULSE 61; BMI 36.3
--- NOTE | 2025-01-08 08:54 | A.OFFVIS_ITS ---
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 He is a pleasant 74-year-old male who as now moved back to [facility] and comes for a follow-up here. Patient was diagnose with atrial fibrillation 10 years ago. He said they were attempts made at maintaining rhythm back then which she initially attempts had failed and then was maintained with rate control and oral anticoagulation therapy. He has been on Eliquis now along with metoprolol for rate control. He has done well with it. He has had no symptoms of palpitations. He does not feel that he is in atrial fibrillation. He has no change in his exercise capacity over the last 10 years. He said he maintains his exercise routine 3 to 4 times a week and has no symptoms exertional shortness of breath. Denies any orthopnea, PND, leg edema. Denies any lightheadedness, syncope. He also has longstanding history of hyp ertension which has been well controlled. Takes all his medications. Also has possible diabetes, given that he is on metformin or prediabetes. Patient has no bleeding issues or neurologic events. [facility] Medical History Atrial fibrillation Diabetes Elevated cholesterol HTN (hypertension) Surgical History H/O colonoscopy Family History Father Heart disease Mother Colon cancer Social History Household Members: None Housing: Condominium Alcohol intake: current Alcohol intake frequency: 0-2 drinks per day Patient Tobacco Use Status: Former Tobacco user Tobacco use type: Cigarette e-Cigarette/Vaping Use: Never Used Second Hand Smoke Exposure: Yes service: No Current occupational status: retired Cognitive needs: No Hearing needs: No Vision needs: Yes (Glasses) Review of Systems Const Denies chills, Denies daytime sleepiness, Denies fatigue, Denies fever(s), Denies frequent falls, Denies poor appetite, Denies snoring, Denies stops breathing during sleep, Denies weakness, Denies weight gain and Denies weight loss Eyes Denies loss of vision ENT Denies dizziness and Denies hearing loss Card Denies chest pain, Denies claudication, Denies leg edema, Denies lightheadedness, Denies palpitations, Denies dyspnea, Denies dyspnea on exertion and Denies orthopnea Resp Denies cough, Denies excessive phlegm production, Denies dyspnea, Denies dyspnea on exertion, Denies snoring and Denies wheezing GI Denies abdominal pain, Denies hematochezia, Denies change in bowel habits, Denies nausea and Denies vomiting Denies dysuria and Denies urinary frequency Musc Denies arthralgias, Denies muscle weakness and Denies numbness Skin/Breast Denies nail changes and Denies rash Neuro Denies Abnormal speech present, Denies dizziness, Denies frequent falls, Denies loss of vision, Denies memory loss, Denies numbness and Denies weakness Psych Denies depression and Denies memory loss Endo Denies fatigue and Denies palpitations Fortino/Lymph Reports easy bruising and Reports other (anemia) Aller/Immun Denies wheezing Physical Exam Vital Signs: Last Vital Signs Pulse 61 01/08/25 08:54 BP 132/78 01/08/25 08:54 BMI result Body Mass Index 36.3 Const General: cooperative, comfortable, no acute distress, alert, awake and P hysically active Nutritional Appearance: obese Orientation/consciousness: patient oriented x3 Limitations: no limitations HEENT Head: Yes normocephalic and Yes atraumatic Neck Neck: Yes trachea midline, Yes supple and Yes no JVD Resp Effort & Inspection: normal respiratory effort Auscultation: clear to auscultation bilaterally Cardio Jugular venous distension: no JVD Rhythm: abnormal rhythm irregularly irregular Heart sounds: S1 normal heart sound present, S2 normal heart sound present, no click, no gallops, no murmurs and no rubs GI Auscultation: normal bowel sounds Skin General skin exam: no rashes or lesions noted Neuro General: patient oriented x3 and no focal motor deficits Speech: No Abnormal speech present Extrem General: Yes no clubbing, cyanosis or edema Psych Appearance: grossly normal Office Procedures EKG Details: EKGs shows atrial fibrillation with right bundle and left posterior fascicular block [id number], Complete Assessment & Plan Assessment & Plan (1) Chronic atrial fibrillation: Comment: Atrial fibrillation diagnose 10 years ago with initial attempts at rhythm management failed and has been maintained with rate control. Code(s): I48.20 - Chronic atrial fibrillation, unspecified Category: Medical Plan: Chronic atrial fibrillation this elderly gentleman 74 years old for at least last 10 years. He had failed rhythm control management usually when he was diagnose and has been maintained with rate control. He continues to have no symptoms and has felt well and has no signs or symptoms of heart failure at this point time a cardiac decompensation. At this point time given the chronicity of atrial fibrillation it is likely that rhythm control will not be and approach that will pursue. Will need an echocardiogram to assess for biatrial chamber size and secondary complications related to chronic atrial fibrillation as development of atrial ventricular valve regurgitation. Will also check LV ejection fraction as well as LV wall thickness. Continue full oral anticoagulation, currently on Eliquis with CHADSVASc score of at least 3. Continue current rate control approach will also obtain a Holter monitor for the same. We discussed about management of atrial fibrillation in details. He understands and agrees. Advised to call me with any new symptoms. (2) HTN (hypertension): Code(s): I10 - Essential (primary) hypertension Category: Medical Qualifiers: Hypertension type: unspecified Qualified Code(s): I10 - Essential (primary) hypertension Plan: Hypertension which is currently well optimized. Advised to continue current therapy with lisinopril and metoprolol therapy advised to monitor blood pressure at home. Goal blood pressure less than 130/84. Also on metformin therapy and maintain goal hemoglobin A1c less than 7% and goal LDL less than 70 mg/dL. Encouraged to maintain activity level as tolerated and participate in lifestyle modification with weight loss and regular physical activity. He understands and agrees. Will follow up in the clinic in 1 year's time, sooner PRN. Thank you for allowing me to partake in his care (3) Bifascicular block: Code(s): I45.2 - Bifascicular block Category: Medical Plan: Bifascicular block on EKGs. Will obtain echocardiogram as above. No interventions required per se for bifascicular block. Will need EKGs on annual basis Orders: Orders CA echo transthoracic complete Today I48.20 - Chronic atrial fibrillation, unspecified Coding Level of Care Code New Pt Level 4 (90021) Complex EM visit Add On G2211 Diagnoses Chronic atrial fibrillation I48.20 Hypertension, unspecified type I10 Hypertension type: unspecified Bifascicular block I45.2 CPT Codes EKG - CPT: 69676-[id number], Complete ([id number])
--- OUTSIDE RECORDS SUMMARY | 2025-01-08 08:58 | XMS_ITS | Patient Health Record ---
Author Organization [facility] Address [address] [place] [address] Care Team Providers Care Liquid Yeast Supervisor Name Role Phone Casey Reeves Primary Care Provider Cody Meeks Unavailable [phone] Allergies No Known Allergies Reason For Referral [...] Problem Status W/U Status Risk Notes Problem Screening for malignant neoplasm of colon (246140552) Encounter for screening for malignant neoplasm of colon (Z12.11) Active confirmed Problem History of adenomatous polyp of colon (796910139) History of adenomatous polyp of colon (Z86.010) Active confirmed Problem Screening for malignant neoplasm of rectum (623857864) Encounter for screening for malignant neoplasm of rectum (Z12.12) Active confirmed Problem Preprocedural examination (095493089154074) Preprocedural examination (Z01.818) Active confirmed Problem History of polyp of colon (situation) (788123755) History of colon polyps (Z86.010) Active confirmed Problem Family History of Cancer of Colon (Situation) (977488487) Family history of colon cancer (Z80.0) Active confirmed Problem Long-term current use of anticoagulant (534742529) Long-term (current) use of anticoagulants (Z79.01) Active confirmed Problem Diverticulosis of colon (863771280) Diverticulosis of colon (K57.30) Active confirmed Problem Long-term current use of anticoagulant (880950329) retirement current use of anticoagulant (Z79.01) Active confirmed Plan Of Treatment Future Test Test Name Order Date COLONOSCOPY 11/06/2015 COLONOSCOPY 04/17/2021 Insurance Providers Payer Name Payer Address Payer Phone Subscriber Number Group Number Insured Name Patient Relationship to Insured Coverage Start Date Coverage End Date [employer] [address] [place] [phone] [id number] GULSHANARMANI Self - patient is the insured Medical (General) History Medical History History ICD Code HTN Denies NM,CVA,Lung disease,renal disease Atrial fibrillation Colonoscopies in 2004(negati ve) and 05/2010--1 polyp removed in 05/2010--tubular adenoma; severe diverticulosis as described in the colonoscopy report as well Hyperlipidemia NIDDM Colonoscopy 01/2016 with small tubular a denomas removed Surgical History Surgery Date(Month/Year)
--- OUTSIDE RECORDS SUMMARY | 2025-01-08 08:58 | XMS_ITS | Clinical Summary ---
Author Organization [facility] Address [address] [place] [id number] Phone Care Team Providers Care Literature Teacher Name Role Phone Casey Reeves MD Primary Care Provider Allergies No known active allergies Medications metFORMIN (GLUCOPHAGE) 500 MG tablet TAKE 2 TABLETS BY MOUTH TWICE DAILY WITH MEALS 360 tablet 3 01/11/20 24 Active metoprolol tartrate (LOPRESSOR) 100 MG tablet TAKE ONE-HALF TABLET BY MOUTH TWICE DAILY 90 tablet 3 01/11/20 24 Active ELIQUIS 5 mg tablet TAKE 1 TABLET BY MOUTH TWICE DAILY 180 tablet 3 01/11/20 24 Active atorvastatin (LIPITOR) 40 MG tabletIndications:Pure hypercholesterolemia Take 1 tablet (40 mg total) by mouth daily. 90 tablet 3 01/11/20 24 Active lisinopril (PRINIVIL,ZESTRIL) 30 MG tabletIndications:Hypert ensive heart disease without heart failure Take 1 tablet (30 mg total) by mouth daily. 90 tablet 3 03/31/19 25 Active Active Problems Patient Care Coordination No te Formatting of this note migh t be different from the original. Annual due 08/10/24 03/23/23 OPTUM ?compliance with MANDO Problem Noted Date Diagnosed Date Isolated proteinuria with morphologic lesion Diverticulosis of colon 06/22/2022 Assessment & Plan (08/10/2023 10:01 AM EDT): Asymptomatic; fibre in diet Assessment & Plan (06/22/2022 12:10 PM EDT): Seen on colonoscopy JING today Family history of malignant neoplasm of colon Overview (08/10/2023): mother Assessment & Plan (08/10/2023 9:57 AM EDT): 05/28/2021 ( Dr. Perez) NEG Next due 2026 Assessment & Plan (06/22/2022 12:06 PM EDT): Up to date with colon screening wheel installer (current) use of anticoagulants 2022 Assessment & Plan (08/10/2023 9:58 AM EDT): On MANDO Eliquis \aware of risk bleeding and need for risk precautions Assessment & Plan (06/22/2022 12:07 PM EDT): Remains on eliquis and aware of net developer risk with bleeding. Fall and safety precautions reviewed. Early dry stage nonexudative age-related macular degeneration of both eyes 06/18/2021 Screening for prostate cancer 06/18/2021 Overview (08/10/2023): PSA drawn per request Assessment & Plan (06/22/2022 12:12 PM EDT): PSA ordered for today Assessment & Plan (06/18/2021 9:22 AM EDT): check PSA Need for vaccination 06/18/2021 Overview (08/10/2023): Up to date with covid Due pneumococcus prevention Assessment & Plan (08/10/2023 10:04 AM EDT): Administer Prevnar 20 Assessment & Plan (06/18/2021 9:25 AM EDT): Will give penumovax 23 in office and get shingles at pharmacy Colon cancer screening 06/09/2021 Overview (06/09/2021): ?DONE Screening for AAA (abdominal aortic aneurysm) Overview (06/09/2021): NEVER DONE Assessment & Plan (08/10/2023 10:05 AM EDT): 07/24/21 NEG Assessment & Plan (06/22/2022 12:11 PM EDT): 5.. NEG Assessment & Plan (06/18/2021 9:29 AM EDT): HX DM, cardiac disease advise AAA screen Hypertensive cardiovascular disease 06/17/2020 Assessment & Plan (08/10/2023 9:59 AM EDT): Labile. 130/80 after rest. On lisinopril 30 mg and metoprolol Assessment & Plan (06/25/2023 8:40 AM EDT): BP 140/82, repeat 144/82. Eats salty snacks (chips). -Increase Lisinopril to 30 mg daily -Low Na+ diet. 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 Cont exercise \Declines GLP-1 Assessment & Plan (08/10/2023 10:01 AM EDT): Cardiovascular risk; avoid excess carbs and alcohol Cont exercise. Assessment & Plan (06/25/2023 8:42 AM EDT): BMI 35 -Encourage a healthy diet rich in fruits, vegetables, whole grains, nuts and legumes. -Limit meats, sweets and carbs, portion control. -Moderate exercise 30 minutes a day. Assessment & Plan (06/22/2022 12:08 PM EDT): Weight reduction advised given his cardiovascular risk Assessment & Plan (06/22/2022 11:06 AM EDT): BMI 35 -Discussed the importance of healthy diet. Encouraged healthy diet rich in fruits, vegetables, whole grains, nuts and legumes. -Encouraged moderate exercise 30 minutes a day. Assessment & Plan (12/17/2021 9:28 AM EDT): Exercising at gym about 3 hours a week Assessment & Plan (06/18/2021 9:33 AM EDT): BMI 34; Cont exercise and weight loss; add muscle strengthening Assessment & Plan (11/22/2020 9:52 AM EDT): Weight reduction and exercise advised Assessment & Plan (05/23/2020 8:17 AM EST): Weight reduction advised.; cardiovascular risk Microalbuminuria 04/24/2014 Assessment & Plan (08/10/2023 10:02 AM EDT): Recheck Urine today Atrial fibrillation 04/20/2014 Overview (05/05/2014): Atrial fibrillation Assessment & Plan (02/09/2024 9:45 AM EST): Stable on metoprolol and eliquis Assessment & Plan (08/10/2023 9:58 AM EDT): Remains on metoprolol and eliquis Assessment & Plan (06/22/2022 12:07 PM EDT): Remains asaymptomatic Assessment & Plan (12/17/2021 9:26 AM EDT): Asymptomatic, no dizziness or fatigue or SOB Cont same meds and eliquis, risk of bleeding reviewed. Assessment & Plan (06/18/2021 9:33 AM EDT): To be seen by Dr. Cancino of cardiology today. On eliquis. Caution with use. Risk of bleeding reviewed. Benefit vs risk discussed. Assessment & Plan (11/22/2020 9:45 AM EDT): Remains on eliquis; asymptomatic Assessment & Plan (05/23/2020 8:15 AM EST): On eliquis Colon polyp 06/17/2010 Overview (06/09/2021): Diverticulosis, hemorrhoids 05/28/21 Dr. Perez - repeat 5 years Colonic polyp 02/10/16 Dr Perez Assessment & Plan (08/10/2023 10:01 AM EDT): JING 2021 colnoscopy Assessment & Plan (06/22/2022 12:09 PM EDT): Up to date Assessment & Plan (06/18/2021 9:09 AM EDT): JING Hx tubular adenoma Assessment & Plan (05/23/2020 8:21 AM EST): getFIT- due for colonoscopy 2020 Depressive disorder 12/29/2007 Overview (05/05/2014): depression Controlled type 2 diabetes [place] without complication, without long-term current use of insulin 12/29/2007 Overview (05/05/2014): Diabetes mellitus type 2 Assessment & Plan (02/09/2024 9:45 AM EST): Low carb diet and cont metformin Assessment & Plan (08/10/2023 9:55 AM EDT): On metformin 1000 mg bid Low carb diet and cont exercise. Check HBA1C. Discussed GLP-1 use. No family hx thyroid, pancreatic Cancer Assessment & Plan (06/25/2023 6:55 AM EDT): A1c 7.0 Assessment & Plan (06/22/2022 12:08 PM EDT): On nmetofrmin; HBA1C due Consider GLP-1 depending on labs and given his obeisyt Assessment & Plan (06/22/2022 11:06 AM EDT): Last A1c 6.8, stable on current regimen. Assessment & Plan (12/17/2021 9:28 AM EDT): Cont low carb diet and metformin ; asymptomatic Assessment & Plan (06/18/2021 9:22 AM EDT): On metformin 500 bid; check HBA1C Assessment & Plan (11/22/2020 9:52 AM EDT): adheres to diet and back to gym for exercise; needs HBA1C Assessment & Plan (05/23/2020 8:22 AM EST): Low carb diet. Metformin 500 mg , 2 bid Hypercholesterolemia 12/29/2007 Overview (05/05/2014): Hypercholesterolemia Assessment & Plan (08/10/2023 10:00 AM EDT): On atorvastatin; check LIPIDS Assessment & Plan (06/25/2023 6:55 AM EDT): Last LDL 66, well controlled. Assessment & Plan (06/18/2021 9:24 AM EDT): Low fat diet , on atorvastatin and LDL 60 last year; non fasting today and defer lipid check Assessment & Plan (11/22/2020 9:52 AM EDT): Low fat diet and cont atorvastatin Assessment & Plan (05/23/2020 8:19 AM EST): Low fat diet, exercise on lipitor . Check labs Resolved Problems Problem Noted Date Diagnosed Date Resolved Date Excessive anticoagulation 06/04/2017 Persistent atrial fibrillation 04/24/2014 08/10/2023 Assessment & Plan (06/25/2023 9:08 AM EDT): ECG Afib 74 bpm, rate controlled, denies bleeding or palpitations. -Continues on Eliquis and metoprolol Assessment & Plan (06/22/2022 11:05 AM EDT): ECG Afib, 76 bpm, rate controlled, denies bleeding. -Continues on Eliquis and metoprolol Diverticular disease 07/22/2010 023 Overview (05/05/2014): diverticulosis Assessment & Plan (06/18/2021 9:34 AM EDT): Discussed potential for divertilulitis Anxiety 12/29/2007 06/22/2022 Overview (05/05/2014): Anxiety Hypertensive disorder 12/29/20072023 Overview (05/05/2014): Hypertensive disorder Assessment & Plan (06/22/2022 12:07 PM EDT): Maintained with low salt diet, exercise, meds Assessment & Plan (06/22/2022 11:08 AM EDT): BP elevated today. 150/90, 152/80. Was normotensive last visit. Last home BP 120/80. -Monitor home blood pressure, keep log. Contact office if readings consistently >140/80. -Low sodium diet < 2000 mg. -Continue to monitor, continue same medications for now, low threshold to increase Lisinopril. -Will be f/u with PCP re: BP Assessment & Plan (12/17/2021 9:27 AM EDT): BP under control with metoprolol and lisinopril Assessment & Plan (06/18/2021 9:23 AM EDT): Low salt diet; cont lisinopril and metoprolol Assessment & Plan (11/22/2020 9:48 AM EDT): Low salt diet, exercise and cont meds Assessment & Plan (05/23/2020 8:19 AM EST): Low salt diet, on metoprolol tartrate 50 mg and lisinopril Uncoded tobacco dependence 12/29/2007 0 08/25/2017 Overview (05/05/2014): tobacco dependence Immunizations Immunization Administration Dates Next Due COVID-19 (Pre-01/04) Pfizer Vaccine, mRNA, PF 06/03/2020,05/13/2020 INFLUENZA, SPLIT VIRUS, TRIVALENT PF 01/08/2012 Influenza High-Dose Quadriva lent Preservative Free IM 01/07/2022 Influenza Quadrivalent Adjuv anted Preservative Free IM 12/08/2022,01/15/2021 Influenza Quadrivalent Prese rvative Free IM 02/23/2019,02/24/2018,02/16/2017,01/14,11/24/2013 Influenza, Unspecified Formulation 04/18(Deferred: Patient Decision - 00),12/16/2009 Pneumococcal conjugate PCV20 08/10/2023 Pneumococcal polysaccharide PPSV23 06/18/2021, Pneumococcal, Unspecified Formulation 12/16/2009 Tdap 08/20/2022,01/08/2012 Zoster recombinant 11/17/2022,08/20/2022 Family History Medical History Relation Comments Type 2 Diabetes Brother 1 Diabetes Mellitu s Type 2 Coronary artery disease Father Coronary Artery Disease Colon cancer Mother Colon Cancer Relation Status Comments Brother 1 Alive Brother 2 Alive Father Mother Sister Alive Social History Tobacco Use Types Packs/Day Years Used Date Smoking Tobacco: Former Cigarettes 0.5 20 1 996 - 2015 Smokeless Tobacco: Never Tobacco Cessation:Counseling Given: Not Answered Comments:Smoking History Packs/day: Quit smoking: Alcohol Use Standard Drinks/Week Comments Yes 7 (1 standard drink = 0.6 oz pur e alcohol) 1 per night Education Answer Date Recorded Are you interested in more education? Not on paul e 07/10/2022 Are you concerned about learning? Not on file 07/10/2022 No 07/10/2022 No 07/10/2022 Digital Access Answer Date Recorded No 08/10/2022 No 08/10/2022 Reliable internet access at home? Not on file 08/10/2022 Device with a working camera? Not on file Sex and Gender Information Value Date Recorded Sex Assigned at Male 03/22/2017 9:35 AM EST Legal Sex Male 2:09 AM EST Gender Identity Male 03/22/2017 9:35 AM EST Sexual Orientation Lesbian or [place]var[place] 07/25/2021 12 :58 AM EDT Sexual Orientation Choose not to disclose 2021 12:58 AM EDT Occupation Industry Job Start Date Job End Date Not on file Not on file Not on file Not on file Last Filed Vital Signs Vital Sign Reading Time Taken Comments Blood Pressure 127/80 02/09/2024 9:38 AM EST Pulse 78 02/09/2024 9:38 AM EST Temperature 36 C (96.8 F) 08/10/2023 9:29 AM EDT Respiratory Rate 16 06/25/2023 8:22 AM EDT Oxygen Saturation 97% 02/09/2024 9:38 AM EST Inhaled Oxygen Concentration - - Weight 102.1 kg (225 lb) 02/09/2024 9:38 AM EST Height 172.7 cm (5' 8 ) 02/09/2024 9:38 AM EST Body Mass Index 34.21 02/09/2024 9:38 AM EST Plan of Treatment Health Maintenance Due Date Last Done Comments HEPATITIS A VACCINES (1 of 2 - Risk 2-dose series) 07/27/1971 COLOGUARD 1997 SIGMOIDOSCOPY 1997 VIRTUAL COLONOSCOPY 1997 DIABETIC EYE EXAM 05/05/2014 FOBT 05/23/2021 05/23/2020 FIT TEST 06/15/2021 06/15/2020, 05/14, 05/27/2020 HEMOGLOBIN A1C 05/22/2024 11/23/2023, 11/13, 08/10/2023, Additional history exists BLOOD PRESSURE 08/08/2024 02/09/2024 DEPRESSION SCREENING 08/09/2024 08/10/2023, 08/10/19 24 INFLUENZA VACCINE (#1) 2024 , 01/07/2022, 01/15/2021, Additional history exists COVID-19 VACCINE ( season) 2024 12/08/2022, 01/07/2022, 08/01/2021, Additional history exists CREATININE LEVEL 11/22/2024 11/23/2023, , 01/28/2023, Additional history exists POTASSIUM LEVEL 11/22/2024 11/23/2023, 07/14, 01/28/2023, Additional history exists COLONOSCOPY 05/28/2026 05/28/2021 COLORECTAL CANCER SCREENING 05/28/2026 RSV VACCINE (1 - 1-dose 75+ series) 07/27/2027 SMOKING STATUS SCREENING (Every 5 Years) 02/08/2029 02/09/2024 Adult Td,Tdap Booster 08/20/2032 08/20/2022, 012 HEPATITIS C SCREENING Completed 05/23/2020, 021 ABDOMINAL AORTIC ANEURYSM (AAA) SCREENING Completed 07/24/2021 ZOSTER VACCINES Completed 11/17/2022, 08/20/2022 PNEUMOCOCCAL VACCINES (50+ years) Completed 08/10/2023, 06/18/2021, 12/16/2009 HIB VACCINES Aged Out No longer eligi ble based on patient's age to complete this topic MENINGOCOCCAL VACCINES (ACWY) Aged Out No longer eligible based on patient's age to complete this topic MENINGOCOCCAL VACCINES (B) Aged Out N o longer eligible based on patient's age to complete this topic Medical Devices Not on file Procedures Procedure Name Priority Date/Time Associated Diagnosis Comments HEMOGLOBIN A1C Routine 11/23/2023 8:05 AM EDT Controlled type 2 diabetes mellitus without complication, without long-term current use of insulin COMPREHENSIVE METABOLIC PANEL Routine 11/23/2023 8:05 AM EDT Controlled type 2 diabetes mellitus without complication, without long-term current use of insulin OUTSIDE AAA TEST Routine 07/24/2021 HM COLONOSCOPY FOR RESULT ENTRY ONLY Routine 05/28/2021 HC BLOOD OCCULT FECAL HGB DETER IA QUAL FECES 1-3 Routine 05/27/2020 9:30 AM EDT HEPATITIS C ANTIBODY, QUALITATIVE Routine 05/23/2020 8:28 AM EST Encounter for hepatitis C screening test for low risk patient from Last 3 Months or Most Recently Relevant to Health Maintenance Results * (ABNORMAL) Comprehensive metabolic panel (11/23/2023 8:05 AM EDT) Glucose 141(H) 65 - 99 mg/dL [facility] Comment: Fasting reference interval For someone without known diabetes, a glucose value >125 mg/dL indicates that they may have diabetes and this should be confirmed with a follow-up test. Urea Nitrogen (BUN) 12 7 - 25 mg/dL [facility] Creatinine 1.00 0.70 - 1.28 mg/dL [facility] EGFR 80 > OR = 60 mL/min/1. 73m2 [facility] BUN/Creatinine Ratio SEE NOTE: (calc) [facility] Comment: Not Reported: BUN and Creatinine are within reference range. Sodium 137 135 - 146 mmol/L [facility] [place] [facility] Potassium 4.7 3.5 - 5.3 mmol/L [facility] [place] [facility] Chloride 99 98 - 110 mmol/L [facility] [place] [facility] Carbon Dioxide 30 20 - 32 mmol/L [facility] [place] [facility] Calcium 9.6 8.6 - 10.3 mg/dL [facility] [place] [facility] Protein, Total 7.0 6.1 - 8.1 g/dL [facility] [place] [facility] Albumin 4.9 3.6 - 5.1 g/dL [facility] [place] [facility] Globulin 2.1 1.9 - 3.7 g/dL (calc) [facility] [place] [facility] Albumin/Globuli n Ratio 2.3 1.0 - 2.5 (calc) [facility] [place] [facility] Bilirubin, Total 1.0 0.2 - 1.2 mg/dL [facility] [place] [facility] Alkaline Phosphatase 122 35 - 144 U/L [facility] [place] [facility] AST 13 10 - 35 U/L [facility] [place] [facility] ALT 18 9 - 46 U/L [facility] [place] [facility] Blood 11/23/2023 8:05 AM EDT 11/23/2023 8:05 AM EDT Narrative Alerts [facility] 11/23/2023 10:21 PM EDT FASTING:YES FASTING: YES Casey Reeves MD LAB BLOOD ORDERABLES Final Resul t Alerts [address] [address], [facility] [phone] [facility] [place] [facility] [address] * (ABNORMAL) Hemoglobin A1c (11/23/2023 8:05 AM EDT) HGB A1C 7.1(H) <5.7 % of total Hgb [facility] [place] [facility] Comment: For someone without known diabetes, a hemoglobin A1c value of 6.5% or greater indicates that they may have diabetes and this should be confirmed with a follow-up test. For someone with known diabetes, a value <7% indicates that their diabetes is well controlled and a value greater than or equal to 7% indicates suboptimal control. A1c targets should be individualized based on duration of diabetes, age, comorbid conditions, and other considerations. Currently, no consensus exists regarding use of hemoglobin A1c for diagnosis of diabetes for children. This test was performed on the Jory torey c503 platform. Effective 05/17/23, a change in test platforms from the [employer] Transmitter Tester to the Jory torey c503 may have shifted HbA1c results compared to historical results. Based on laboratory validation testing conducted at [facility], the Jory platform relative to the Deal platform had an average increase in HbA1c value of < or = 0.3%. This difference is within accepted variability established by the National Glycohemoglobin Standardization Program. Note that not all individuals will have had a shift in their results and direct comparisons between historical and current results for testing conducted on different platforms is not recommended. Blood 11/23/2023 8:05 AM EDT 11/23/2023 8:05 AM EDT Narrative [facility] - 11/23/2023 10:21 PM EDT FASTING:YES FASTING: YES Casey Reeves MD LAB BLOOD ORDERABLES Final Resul t epicurio [address] [place] [address],[place] [address], [facility] [phone] [email or web address] [address] [place] [phone] * OUTSIDE ABDOMINAL AORTIC ANEURYSM (AAA) SCREENING (07/24/2021) Abdominal Aortic Aneurysm (AAA) Screening - External normal Historical Provider LAB BLOOD ORDERABLES Misty l Result * COLONOSCOPY FOR RESULT ENTRY ONLY (05/28/2021) Pathologist [facility] Colonoscopy diverticulosis, hemorrhoids Historical Provider HEALTH MAINTENANCE Final Result * (ABNORMAL) Fecal immunochemical test x1 (FIT) (05/27/2020 9:30 AM EDT) IFOBT Unable to assay,specimen was collected in an sampling container,plea se recollect(A) Negative [facility] 05/27/2020 9:30 AM EDT 06/04/2020 11:21 AM EDT us Casey Reeves MD BODY FLUIDS AND STOOLS ORDERABLE S Final Result [address] [address], [facility] [phone] * Hepatitis C antibody, qualitative (05/23/2020 8:28 AM EST) HCV ANTIBODY Negative Negative [facility] Blood 05/23/2020 8:28 AM EST 05/23/2020 3:56 PM EST us Casey Reeves MD LAB BLOOD ORDERABLES Final Resul t [address] [address], [facility] [phone] from Last 3 Months or Most Recently Relevant to Health Maintenance Insurance [employer] REPL[employer] REPL[employer] REPLAC[employer]PLAC[employer]PLACEMENT [employer] REPLACEMENT [employer] REPLACEMENT [employer] REPLACEMENT Care Teams Literature Teacher Relationship Specialty Start Date End Date Casey Reeves MD [address] [place] [address] [email or web address] PCP - General Internal Medicine 08/04/23 Additional Source Comments The information contained in this document represents components of the legal health record. It is not the complete legal health record.[facility]
== END 2025-01-08 09:22 | disposition home or self-care (01) ==
LOC: HO.HCS 08:35
PROVIDERS: Visit Provider Internal Medicine Cardiovascular Disease
DX: I48.20 Chronic atrial fibrillation, unspecified (principal); I10 Essential (primary) hypertension; I45.2 Bifascicular block
CPT/HCPCS: 93010; 99204; G2211

== ENCOUNTER → 2025-01-08 08:35 | Outpatient (BNVA) | payer OTHER, SELFPAY | PROVIDERS: Visit Provider Internal Medicine Cardiovascular Disease | DX: I10 Essential (primary) hypertension (principal); I48.20 Chronic atrial fibrillation, unspecified | CPT/HCPCS: 93005 ==

== ENCOUNTER 2025-01-30 08:28 | Outpatient (AMB) | payer OTHER, SELFPAY ==
--- NOTE | 2025-01-30 08:42 | A.OFFPC_ITS ---
Vital Signs 01/30/25 08:56 Height 5 ft 7 in Weight 230 lb 6 oz BMI 36.1 BP 130/80 Blood Pressure Location Lt brachial Position Sitting Pulse 67 Pulse Source Pulse Oximeter Temp 97.3 F Temp Source Temporal Artery Scan Pulse Oximetry (%) 97 Oxygen Delivery Method Room Air Intake Visit Reasons: htn/dm/hld/afib Intake Note: Patient is here to follow up on DM, HTN, HLD, Afib. Photo Studio Assistant Required: No Ground Crew Supervisor: Not Required per policy Accompanied by: Self / Same As Patient Allergies No Known Allergies (No Known Allergies*) Allergy (Verified 01/30/25 09:23) Medication List - Last Reconciled 01/30/25 by FRANNY Bates apixaban (Eliquis) 5 mg PO BID 90 days atorvastatin 40 mg PO DAILY lisinopril 30 mg PO DAILY metformin 2 tabs PO BID metoprolol tartrate 50 mg PO BID Tobacco use date assessed: 01/30/25 Fall risk assessment: No Falls in past year Last assessed Fall Risk: 01/30/25 Dental Screening Dental Screen Date: 08/29/24 HPI htn/dm/hld/afib HPI Details The patient is a 74 year male presenting for HTN, DM, HLD, AFib follow up The patient is new to the practice and is being followed for type 2 diabetes. His hemoglobin A1c was 6.7% in August, and a recent A1c was 7.2%, which the patient attributes to dietary indulgence after Hallow. He is currently taking metformin. Two or three days ago, the patient experienced a sudden onset of right-sided sciatic pain, described as lightening going through my hips, after lifting his Jennifer tree. He reports the pain was initially severe, rating it an 8 on a pain scale, but has since improved significantly with the use of a heating pad. The patient has a history of catheter surgeries and angioplasty at [facility]. He is scheduled for an echocardiogram and a heart monitor placement this , as ordered by cardiology. His chronic medications include lisinopril, atorvastatin, and Eliquis. The patient reports going to the gym three days a week but notes his endurance has decreased from walking 3 miles per visit to 2.5 miles, which he attributes to age. He feels tired but not out of breath during these sessions. PFSH Medical History (Updated 01/30/25 @ 10:20 by FRANNY Bates) Atrial fibrillation Diabetes Elevated cholesterol HTN (hypertension) Surgical History H/O colonoscopy Family History Father Heart disease Mother Colon cancer Social History Household Members: None Housing: Condominium Alcohol intake: current Alcohol intake frequency: 0-2 drinks per day Patient Tobacco Use Status: Former Tobacco user Tobacco use type: Cigarette e-Cigarette/Vaping Use: Never Used Second Hand Smoke Exposure: Yes service: No Current occupational status: retired Cognitive needs: No Hearing needs: No Vision needs: Yes (Glasses) Questionnaire Thrive Questionnaire Date Thrive assessed: 08/22/24 I am a: Patient What is your living situation today?: I have a steady place to live Within the past 12 months, did the food you bought not last and you didn't have the money to get more?: Never true Within the past 12 months, did you worry whether your food would run out before you got money to buy more?: Never true Do you have trouble paying for medicines?: No Do you have trouble getting transportation to medical appointments?: No Do you have trouble paying your heating and electricity bill?: No Do you have trouble taking care of your child, family member or friend?: No Do you have trouble with day-to-day activities such as bathing, preparing meals, shopping, managing finances, etc.?: No Are you currently unemployed and looking for a job?: No Are you interested in more education?: No Please select the resources that you would like help with: None Currently or been in a relationship where the following occur: No concerns reported THRIVE Score: 0 NALLELY-7 AMB Questionnaire NALLELY-7 Date NALLELY - 7 assessed: 08/29/24 Source: Developed by Drs. Cody Comer, Tram Starr, Keyon Angeles and colleagues, with an educational zafar from [employer]. Review of Systems Const Denies chills, Denies daytime sleepiness, Denies fatigue, Denies fever(s), Denies frequent falls, Denies poor appetite, Denies snoring, Denies stops breathing during sleep, Denies weakness, Denies weight gain and Denies weight loss Eyes Denies loss of vision ENT Denies dizziness and Denies hearing loss Card Denies chest pain, Denies claudication, Denies leg edema, Denies lightheadedness, Denies palpitations, Denies dyspnea, Denies dyspnea on exertion and Denies orthopnea Resp Denies cough, Denies excessive phlegm production, Denies dyspnea, Denies dyspnea on exertion, Denies snoring and Denies wheezing GI Denies abdominal pain, Denies hematochezia, Denies change in bowel habits, Denies nausea and Denies vomiting Denies dysuria and Denies urinary frequency Musc Denies arthralgias, Denies muscle weakness and Denies numbness Skin/Breast Denies nail changes and Denies rash Neuro Denies Abnormal speech present, Denies dizziness, Denies frequent falls, Denies loss of vision, Denies memory loss, Denies numbness and Denies weakness Psych Denies depression and Denies memory loss Endo Denies fatigue and Denies palpitations Fortino/Lymph Reports easy bruising and Reports other (anemia) Aller/Immun Denies wheezing Physical exam (Primary Care) Tobacco/Smoking Status: Tobacco use Status Tobacco use date assessed 10/26/24 01/30/25 08:43 Patient Tobacco Use Status Former Tobacco user 01/30/25 08:43 Tobacco use type Cigarette 01/30/25 08:43 e-Cigarette/Vaping Use Never Used 01/30/25 08:43 Thrive Assessment: Date of Thrive Assessment Date Thrive assessed 08/22/24 01/30/25 08:43 Currently or been in a relationship where the following occur: No concerns reported Const General: healthy appearing, no acute distress, alert and awake Nutritional Appearance: well nourished Orientation/consciousness: oriented to person, oriented to place and oriented to time [facility] General nose exam: Normal nasal mucous membranes and turbinates present Teeth and gingiva: dentures Eyes Conjunctivae: conjunctivae normal Sclerae: sclerae normal Pupils: Equal, round and reactive pupils present Neck Neck: Yes no lymphadenopathy and Yes no JVD Thyroid: Thyroid normal Carotids: no bruits Resp Effort & Inspection: normal respiratory effort and not tachypneic Auscultation: no crackles, no rales, no rhonchi and no wheezes Cardio Rate: regular rate Rhythm: abnormal rhythm irregularly irregular Heart sounds: no murmurs and normal S1 and S2 GI Palpation (GI): Soft to palpation, nontender, no hepatomegaly and no splenomegaly Auscultation: normal bowel sounds General: Yes no CVA tenderness Back/Spine/Pelvis Back: no CVA tenderness Skin General skin exam: no rashes or lesions noted and dry skin Neuro General: oriented to person, oriented to place and oriented to time Cranial nerves: Yes Equal, round and reactive pupils present Speech: No Abnormal speech present Gait exam (Neuro): Normal gait present Motor exam (neuro): no tremor noted Extrem Right upper extremity: full ROM Left upper extremity: full ROM Right lower extremity: full ROM; no edema Left lower extremity: full ROM; no edema Psych Mental Status: mental status grossly normal Speech and movement: Normal speech and movement present Affect: normal affect Attitude: cooperative Thought process: Normal thought process present Results AMB Hemoglobin A1c AMB Hemoglobin A1c 7.2 % Last Edit by LISSETTE Smiley on 01/30/25 09:09 Coding Level of Care Code Est Pt Level 4 (29214) Diagnoses Longstanding persistent atrial fibrillation I48.11 Atrial fibrillation type: longstanding persistent Hyperlipidemia, unspecified hyperlipidemia type E78.5 Hyperlipidemia type: unspecified Hypertension, unspecified type I10 Hypertension type: unspecified Vitamin D deficiency E55.9 Diverticulosis K57.90 Type 2 diabetes mellitus with other specified complication, without long-term current use of insulin E11.69 Diabetes mellitus complication status: with other specified complication 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 and metoprolol tartrate 50 mg b.i.d. Continue atorvastatin 40 mg daily Patient was referred to [facility] cardiology and was seen and evaluated. He has a plans for echocardiogram and heart monitor on . Follow up with Cardiology as scheduled. (2) HLD (hyperlipidemia): Code(s): E78.5 - Hyperlipidemia, unspecified Category: Medical Qualifiers: Hyperlipidemia type: unspecified Qualified Code(s): E78.5 - Hyperlipidemia, unspecified Plan: Triglycerides 120, total cholesterol 109, LDL 53, HDL 32-has not completed pre- ordered labs before appt. Encouraged fish oil supplements Discussed lifestyle modifications including dietary changes and physical activity Continue atorvastatin 40 mg daily Patient would like to complete labs after the holiday. Follow up in 4 months. (3) HTN (hypertension): Code(s): I10 - Essential (primary) hypertension Category: Medical Qualifiers: Hypertension type: unspecified Qualified Code(s): I10 - Essential (primary) hypertension Plan: Blood pressure is within normal goal in office today Reinforced low-salt diet Continue lisinopril 30 mg daily, metoprolol tartrate 50 mg bid (4) Vitamin D deficiency: Code(s): E55.9 - Vitamin D deficiency, unspecified Category: Medical Plan: Vitamin-D 17.3 on his previous labs, but has not completed repeat labs as yet Recommended starting vitamin D3 OTC daily (5) Diverticulosis: Code(s): K57.90 - Diverticulosis of intestine, part unspecified, without perforation or abscess without bleeding Category: Medical Plan: Diverticulosis seen on colonoscopy in 2021 no active inflammation or infection (6) Diabetes: Code(s): E11.9 - Type 2 diabetes mellitus without complications Category: Medical Qualifiers: Diabetes mellitus complication status: with other specified complication Diabetes mellitus usp insulin use: without usp use Diabetes jerri mojica type: type 2 Qualified Code(s): E11.69 - Type 2 diabetes mellitus with other specified complication Plan: The patient's recent hemoglobin A1c was 7.2%, an increase from 6.7% in August, which he attributes to dietary choices. No medication changes will be made at this time. The patient was advised to reduce sugar intake. We will continue to monitor A1c every six months, with comprehensive lab work deferred until the next year. Continue metformin 2 tabs b.i.d. (7) Sciatica: Code(s): M54.30 - Sciatica, unspecified side Category: Medical Qualifiers: Laterality: right Qualified Code(s): M54.31 - Sciatica, right side Plan: The patient developed acute right-sided sciatic pain after lifting a heavy object. He reports significant improvement with self-treatment using a heating pad. No further intervention is required at this time. Orders: Orders AMB Hemoglobin A1c Today Z13.9 - Encounter for screening, unspecified
[2025-01-30 08:56] VITALS: BP 130/80; PULSE 67; TEMP 36.3; O2SAT 97; BMI 36.1
--- OUTSIDE RECORDS SUMMARY | 2025-01-30 15:47 | XMS_ITS | Patient Health Record ---
Author Organization [facility] Address [address] [place] [address] Care Team Providers Care Register Of Wills Name Role Phone Casey Reeves Primary Care Provider Cody Meeks Unavailable [phone] Allergies No Known Allergies Reason For Referral No Information Medications Medication SIG (Take, Route, Frequency, Duration) Notes Start Date End Date Status Lisinopril 20 MG Tablet 1 tablet Orally Once a day Active Atorvastatin Calcium 40 MG Tablet 1 tablet Orally Once a day Active Eliquis 5 MG Tablet 1 Orally bid Active metFORMIN HCl 1000 MG Tablet 1 tablet with a meal Orally Twice a day Active Metoprolol Succinate ER 100 MG Tablet Extended Release 24 Hour 1/2 tablet Orally twice a day Active Immunizations Vaccine Route Administration Date Status Comme nts Influenza Unknown 01/28/2021 Administered Social History Social History Drugs/Alcohol: Social Info Question Answer Notes Alcohol Screen Did you have a drink containing alcohol in the past year? Yes How often did you have a drink containing alcohol in the past year? 4 or more times a week (4 points) How many drinks did you have on a typical day when you were drinking in the past year? 1 or 2 drinks (0 point) How often did you have 6 or more drinks on one occasion in the past year? Never (0 point) Points 4 Interpretation Positive Additional Details Category Social Info Options Details Miscellaneous: Marital status: Single Occupation: Retired Section Notes: Nonsmoker since 2013; no sig alcohol Nonsmoker since 2013; no sig alcohol Problems Problem Type SNOMED Code ICD Code Onset Dates Problem Status W/U Status Risk Notes Problem Screening for malignant neoplasm of colon (077765399) Encounter for screening for malignant neoplasm of colon (Z12.11) Active confirmed Problem History of adenomatous polyp of colon (794485855) History of adenomatous polyp of colon (Z86.010) Active confirmed Problem Screening for malignant neoplasm of rectum (621221919) Encounter for screening for malignant neoplasm of rectum (Z12.12) Active confirmed Problem Preprocedural examination (518165831946832) Preprocedural examination (Z01.818) Active confirmed Problem History of polyp of colon (situation) (467106472) History of colon polyps (Z86.010) Active confirmed Problem Family History of Cancer of Colon (Situation) (777714748) Family history of colon cancer (Z80.0) Active confirmed Problem Long-term current use of anticoagulant (747798734) Long-term (current) use of anticoagulants (Z79.01) Active confirmed Problem Diverticulosis of colon (557968063) Diverticulosis of colon (K57.30) Active confirmed Problem Long-term current use of anticoagulant (907883308) intermediate current use of anticoagulant (Z79.01) Active confirmed Plan Of Treatment Future Test Test Name Order Date COLONOSCOPY 11/06/2015 COLONOSCOPY 04/17/2021 Insurance Providers Payer Name Payer Address Payer Phone Subscriber Number Group Number Insured Name Patient Relationship to Insured Coverage Start Date Coverage End Date [employer] [address] [place] [phone] [id number] ARMANI GAFFNEY Self - patient is the insured Medical (General) History Medical History History ICD Code HTN Denies PA,CVA,Lung disease,renal disease Atrial fibrillation Colonoscopies in 2004(negati ve) and 05/2010--1 polyp removed in 05/2010--tubular adenoma; severe diverticulosis as described in the colonoscopy report as well Hyperlipidemia NIDDM Colonoscopy 01/2016 with small tubular a denomas removed Surgical History Surgery Date(Month/Year)
--- OUTSIDE RECORDS SUMMARY | 2025-01-30 15:47 | XMS_ITS | Clinical Summary ---
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 Fall and safety precautions [...] on patient's age to complete this topic IPV VACCINES Aged Out No longer eligi ble [...] current use of insulin COMPREHENSIVE METABOLIC PANEL (CMP) Routine 11/23/2023 8:05 AM EDT Controlled type [...] EDT) Glucose 141(H) 65 - 99 mg/dL [facility] Comment: Fasting reference interval For someone without known diabetes, a glucose value >125 mg/dL indicates that they may have diabetes and this should be confirmed with a follow-up test. Urea Nitrogen (BUN) 12 7 - 25 mg/dL [facility] Creatinine 1.00 0.70 - 1.28 mg/dL [facility] EGFR 80 > OR = 60 mL/min/1. 73m2 [facility] [facility] BUN/Creatinine Ratio SEE NOTE: 6 - 22 (calc) [facility] [place] [facility] Comment: Not Reported: BUN and Creatinine are within reference range. Sodium 137 135 - 146 mmol/L [facility] [place] [facility] Potassium 4.7 3.5 - 5.3 mmol/L [facility] [place] [facility] Chloride 99 98 - 110 mmol/L [facility] [place] [facility] Carbon Dioxide 30 20 - 32 mmol/L [facility] [place] [facility] Calcium 9.6 8.6 - 10.3 mg/dL [facility] [place] [facility] Protein, Total 7.0 6.1 - 8.1 g/dL [facility] [place] [facility] Albumin 4.9 3.6 - 5.1 g/dL [facility] [place] [facility] Globulin 2.1 1.9 - 3.7 g/dL (calc) [facility] [place] [employer] Albumin/Globuli n Ratio 2.3 1.0 - 2.5 (calc) [facility] [place] [facility] Bilirubin, Total 1.0 0.2 - 1.2 mg/dL [facility] [place] [employer] Alkaline Phosphatase 122 35 - 144 U/L [facility] [place] [facility] AST 13 10 - 35 U/L [facility] [place] [employer] ALT 18 9 - 46 U/L [facility] [place] [employer] Blood 11/23/2023 8:05 AM EDT 11/23/2023 8:05 AM EDT Narrative [facility] 11/23/2023 10:21 PM EDT FASTING:YES FASTING: YES Casey Reeves MD LAB BLOOD BKR ORDERABLES Final R esult [facility] [facility] [address],[facility] [place] [address], [facility] [phone] [facility] [place] [employer] [address] [place] [phone] * (ABNORMAL) Hemoglobin A1c (11/23/2023 8:05 AM EDT) HGB A1C 7.1(H) <5.7 % of total Hgb [facility] Comment: For someone without known diabetes, a [...] change in test platforms from the Deal Dist[employer] Operator to the Jory torey c503 may have shifted HbA1c results compared to historical results. Based on laboratory validation testing conducted at [facility], the [employer] platform relative to the Deal [...] AM EDT 11/23/2023 8:05 AM EDT Narrative [facility] - 11/23/2023 10:21 PM EDT FASTING:YES FASTING: YES Casey Reeves MD LAB BLOOD BKR ORDERABLES Final R esult [facility] [address] [address], [facility] [phone] [facility] [address] [place] [phone] * OUTSIDE ABDOMINAL AORTIC ANEURYSM (AAA) SCREENING (07/24/2021) Abdominal Aortic Aneurysm (AAA) Screening - External normal Historical Provider LAB BLOOD ORDERABLES Misty l Result * COLONOSCOPY FOR RESULT ENTRY ONLY (05/28/2021) Colonoscopy diverticulosis, hemorrhoids Historical Provider HEALTH MAINTENANCE Final Result * (ABNORMAL) Fecal immunochemical test x1 (FIT) (05/27/2020 9:30 AM EDT) IFOBT Unable to assay,specimen was collected in an sampling container,plea se recollect(A) Negative [facility] 05/27/2020 9:30 AM EDT 06/04/2020 11:21 AM EDT us Casey Reeves MD LAB BODY FLUIDS AND [place] [address], [facility] [phone] * Hepatitis C antibody, qualitative (05/23/2020 8:28 AM EST) HCV ANTIBODY Negative Negative [facility] Blood 05/23/2020 8:28 AM EST 05/23/2020 3:56 PM EST us Casey Reeves MD LAB BLOOD [place]KR [place] [address], [facility] [phone] from Last 3 Months or Most Recently Relevant to Health Maintenance Insurance [employer] [place] [id number] [employer] RE[employer] RE[employer] Care Teams Staff Developer Relationship Specialty Start Date End Date Casey Reeves MD [address] [place] [address] [email or web address] PCP - General Internal Medicine 08/04/23 Additional Source Comments The information contained in this document represents components of the legal health record. It is not the complete legal health record.[facility]
== END 2025-01-30 09:41 | disposition home or self-care (01) ==
LOC: HO.HMCH 08:29
DX: I48.11 Longstanding persistent atrial fibrillation (principal); E78.5 Hyperlipidemia, unspecified; I10 Essential (primary) hypertension; E55.9 Vitamin D deficiency, unspecified; K57.90 Diverticulosis of intestine, part unspecified, without perforation or abscess without bleeding; E11.69 Type 2 diabetes mellitus with other specified complication; M54.31 Sciatica, right side; Z13.9 Encounter for screening, unspecified

== ENCOUNTER → 2025-01-30 08:28 | Outpatient (BNVA) | payer OTHER, SELFPAY | DX: I48.11 Longstanding persistent atrial fibrillation (principal); I10 Essential (primary) hypertension; E78.5 Hyperlipidemia, unspecified; E55.9 Vitamin D deficiency, unspecified; E11.69 Type 2 diabetes mellitus with other specified complication; K57.90 Diverticulosis of intestine, part unspecified, without perforation or abscess without bleeding; M54.31 Sciatica, right side | CPT/HCPCS: 83036 ==

== ENCOUNTER → 2025-02-01 08:06 | Outpatient (REF) | payer MEDICARE, SELFPAY ==
--- NOTE | 2025-02-01 08:10 | HM_ITS ---
* Total monitoring time 2 days. * Underlying rhythm is atrial fibrillation with an average ventricular rate of 69/Min. * Rare ventricular ectopy. * Pauses noted, longest 3.2 seconds at 08:43. Does not reach significance. * No patient markers or diary events. MTDD
--- NOTE | 2025-02-01 08:10 | CA_ITS ---
Transthoracic Echocardiogram Patient (Last, First, Middle): Leonel Foley T Gender: M Date of : 1950 Age: 74 Procedure Date: 02/01/2025 Procedure Type: Transthoracic Echocardiogram Location: OP Height: 172.72 cm Weight: 104.33 kg BSA: 2.17 m2 Heart Rate: bpm BP: 130 / 80 mmHg Iuss Analyst: TO Referring MD: Don Gracia MD Symptoms: I48.20 - Chronic atrial fibrillation, unspecified Study Quality: Fair/Contrast ECG Rhythm: Atrial Fibrillation Conclusions: - The left ventricular systolic function is low normal. The visually estimated ejection fraction is between 50-55%. - No obvious valvular pathology seen on this study. - There is mild dilatation of the ascending aorta measuring 4.20 cm. Findings Procedure Information Contrast agent, definity, is being given per protocol without apparent complications. Left Ventricle Normal left ventricular cavity size. The left ventricular systolic function is low normal. The visually estimated ejection fraction is between 50-55%. There is no evidence of regional wall motion abnormalities. Diastolic function is indeterminate on the basis of available data. There is mild septal asymmetric hypertrophy. Right Ventricle Mildly increased right ventricular cavity size. There is normal right ventricular systolic function. Atria The left atrium is moderately dilated. The right atrium is mildly dilated. Aortic Valve There is a normal trileaflet aortic valve. There is mild calcification of the aortic valve. There is no aortic valve stenosis. There is no aortic valve regurgitation. Mitral Valve The mitral valve appears normal. There is no mitral valve regurgitation. There is no mitral valve stenosis. Pulmonic Valve The pulmonic valve is likely normal. Tricuspid Valve There is trace tricuspid valve regurgitation. There is no evidence of pulmonary hypertension. Great Vessels There is mild dilatation of the ascending aorta measuring 4.20 cm. Venous The inferior vena cava is mildly dilated and collapses greater than 50% with inspiration. Pericardium/Pleural There is no evidence of pericardial effusion. Prior Study Comparison No prior study available for comparison. Recommendations, Care & Conclusions No obvious valvular pathology seen on this study. Measurements 2D Linear Measurements IVSd: 1.04 0.6-0.9/0.6-1.0 cm LVIDd: 4.90 3.9-5.3/4.2-5.9 cm LVIDd Index: 2.26 2.4-3.2/2.2-3.1 cm/m2 LVIDs: 3.43 2.0-3.6 cm LVPWd: 0.87 0.7-1.1 cm LA Diam: 4.40 2.7-3.8/3.0-4.0 cm LAIDs Index: 2.03 1.5-2.3 cm/m2 LV Mass: 206.10 67-162/88-224 g LV Mass Index: 94.98 43-95/49-115 g/m2 LVOT Diam: 2.20 3.0+(-)1.3 cm 2D Systolic Function EF 4C: 52.10 >55% EF 2C: 51.90 >55% EF BiP: 50.40 >55% Mitral Valve MV VTI: 0.29 MV Pk Deven: 1.13 MV Mn Deven: 0.50 MV Pk Grad: 5.00 MV Mn Grad: 2.00 MV Pk E: 1.06 MV Decel Time: 154.00 E'Lateral: 9.14 E'Medial: 6.89 E/E' Med: 15.40 E/E' Lat: 11.60 PHT: 45.00 MVA PHT: 4.89 MVA Continuity: 1.86 Decel Hudspeth: 6.91 Aortic Valve AoV Pk Deven: 1.43 AoV Pk Grad: 8.00 LVOT LVOT Pk Deven: 0.74 LVOT Mn Deven: 0.48 LVOT VTI: 0.14 LVOT Pk Grad: 2.00 LVOT Mn Grad: 1.00 LVOT Diam: 2.20 LVOT Area: 3.80 Diastolic Function MV Pk E: 1.06 E'Medial: 6.89 E/E' Med: 15.40 E' Laterial: 9.14 E/E' Lat: 11.60 Right Ventricle TAPSE (mm): 19.00 TVS' Deven: 9.89 Tricuspid Valve TR Pk Deven: 1.94 TR Pk Grad: 15.00 RA Press: 8.00 RVSP: 23.00 Great Vessels Aorta Sinus of Valsalva: 3.51 2.0-3.5 cm Ao Asc: 4.20 2.1-3.4 cm Updated in Other Vendor System with Status of Final Rey Martinez MD electronically signed on 02/01/2025 11:55:39 AM with status of Final
--- OUTSIDE RECORDS SUMMARY | 2025-02-01 08:25 | XMS_ITS | Clinical Summary ---
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 Fall and safety precautions [...] EDT) Glucose 141(H) 65 - 99 mg/dL [facility] Comment: Fasting reference interval For someone without known diabetes, a glucose value >125 mg/dL indicates that they may have diabetes and this should be confirmed with a follow-up test. Urea Nitrogen (BUN) 12 7 - 25 mg/dL [facility] Creatinine 1.00 0.70 - 1.28 mg/dL [facility] EGFR 80 > OR = 60 mL/min/1. 73m2 [facility] BUN/Creatinine Ratio SEE NOTE: 6 - 22 (calc) [facility] [place] [facility] Comment: Not Reported: BUN and Creatinine are within reference range. Sodium 137 135 - 146 mmol/L [facility] [place] [facility] Potassium 4.7 3.5 - 5.3 mmol/L [facility] [place] [facility] Chloride 99 98 - 110 mmol/L [facility] [place] [facility] Carbon Dioxide 30 20 - 32 mmol/L [facility] [place] [facility] Calcium 9.6 8.6 - 10.3 mg/dL [facility] [place] [facility] Protein, Total 7.0 6.1 - 8.1 g/dL [facility] [place] [facility] Albumin 4.9 3.6 - 5.1 g/dL [facility] [place] [facility] Globulin 2.1 1.9 - 3.7 g/dL (calc) [facility] [place] [facility] Albumin/Globuli n Ratio 2.3 1.0 - 2.5 (calc) [facility] [place] [facility] Bilirubin, Total 1.0 0.2 - 1.2 mg/dL [facility] [place] [facility] Alkaline Phosphatase 122 35 - 144 U/L [facility] [place] [facility] AST 13 10 - 35 U/L [facility] [place] [facility] ALT 18 9 - 46 U/L [facility] [place] [facility] Blood 11/23/2023 8:05 AM EDT 11/23/2023 8:05 AM EDT Narrative [employer] [facility] 11/23/2023 10:21 PM EDT FASTING:YES FASTING: YES Casey Reeves MD LAB BLOOD BKR ORDERABLES Final R esult [employer] [address],[facility] [place] [address], [facility] [phone] [facility] [place] [facility] [address] [place] [phone] * (ABNORMAL) Hemoglobin A1c (11/23/2023 8:05 AM EDT) HGB A1C 7.1(H) <5.7 % of total Hgb [facility] [place] [facility] Comment: For someone without [...] change in test platforms from the [employer] to the Jory torey [id number] may have shifted HbA1c results compared to historical results. Based on laboratory validation testing conducted at [facility], the Jory platform relative to the Deal [...] AM EDT 11/23/2023 8:05 AM EDT Narrative [facility] - 11/23/2023 10:21 PM EDT FASTING:YES FASTING: YES Casey Reeves MD LAB BLOOD BKR ORDERABLES Final R esult [employer] [address] [address], [facility] [phone] [facility] [address] [place] [phone] * OUTSIDE ABDOMINAL AORTIC ANEURYSM (AAA) SCREENING [...] in an sampling container,plea se recollect(A) Negative [facility] 05/27/2020 9:30 AM EDT 06/04/2020 11:21 AM EDT us Casey Reeves MD LAB BODY FLUIDS AND STOOL ORDERA [place] [address], [facility] [phone] * Hepatitis C antibody, qualitative (05/23/2020 8:28 AM EST) HCV ANTIBODY Negative Negative [facility] Blood 05/23/2020 8:28 AM EST 05/23/2020 3:56 PM EST us Casey Reeves MD LAB BLOOD BKR ORDERABLES [place] [address], [facility] [phone] from Last 3 Months or Most Recently Relevant to Health Maintenance Insurance [employer] [place] [id number] [employer] RE[employer] Care Teams Impression Printer Relationship Specialty Start Date End Date Casey Reeves MD [address] [place] [address] [email or web address] PCP - General Internal Medicine 08/04/23 Additional Source Comments The information contained in this document represents components of the legal health record. It is not the complete legal health record.[facility]
--- OUTSIDE RECORDS SUMMARY | 2025-02-01 08:25 | XMS_ITS | Patient Health Record ---
Author Organization [facility] Address [address] [place] [address] Care Team Providers Care Corporate Staff Accountant Name Role Phone Casey Reeves Primary Care Provider Cody Meeks Unavailable [phone] Allergies No Known Allergies Reason For Referral [...] Problem Screening for malignant neoplasm of colon (820641835) Encounter for screening for malignant neoplasm of colon (Z12.11) Active confirmed Problem History of adenomatous polyp of colon (227581776) History of adenomatous polyp of colon (Z86.010) Active confirmed Problem Screening for malignant neoplasm of rectum (529243875) Encounter for screening for malignant neoplasm of rectum (Z12.12) Active confirmed Problem Preprocedural examination (366621052796195) Preprocedural examination (Z01.818) Active confirmed Problem History of polyp of colon (situation) (143739031) History of colon polyps (Z86.010) Active confirmed Problem Family History of Cancer of Colon (Situation) (757498008) Family history of colon cancer (Z80.0) Active confirmed Problem Long-term current use of anticoagulant (787650425) Long-term (current) use of anticoagulants (Z79.01) Active confirmed Problem Diverticulosis of colon (579686467) Diverticulosis of colon (K57.30) Active confirmed Problem Long-term current use of anticoagulant (909009250) [facility] current use of anticoagulant (Z79.01) Active confirmed Plan Of Treatment Future Test Test Name Order Date COLONOSCOPY 11/06/2015 COLONOSCOPY 04/17/2021 Insurance Providers Payer Name Payer Address Payer Phone Subscriber Number Group Number Insured Name Patient Relationship to Insured Coverage Start Date Coverage End Date [employer] [address] [place] [phone] [id number] ARMANI GAFFNEY Self - patient is the insured Medical (General) History Medical History History ICD Code HTN Denies RI,CVA,Lung disease,renal disease Atrial fibrillation Colonoscopies in 2004(negati ve) and 05/2010--1 polyp removed in 05/2010--tubular adenoma; severe diverticulosis as described in the colonoscopy report as well Hyperlipidemia NIDDM Colonoscopy 01/2016 with small tubular a denomas removed Surgical History Surgery Date(Month/Year)
== END ==
LOC: HO.CARD 08:06
PROVIDERS: Visit Provider Internal Medicine Cardiovascular Disease
DX: I48.20 Chronic atrial fibrillation, unspecified (principal)
CPT/HCPCS: 93225; 93306; Q9957

== ENCOUNTER → 2025-02-01 08:10 | Outpatient (BNV) | payer MEDICARE, SELFPAY | PROVIDERS: Visit Provider Internal Medicine | DX: I77.810 Thoracic aortic ectasia (principal) | CPT/HCPCS: 93306 ==